=== PATIENT | female | born 2000 | race Caucasian/White ===

== ENCOUNTER 2020-06-11 10:42 | Emergency (ER) | payer OTHER, SELFPAY ==
--- NOTE | ~2020-06-11 | CT_ITS ---
EXAMINATION: CT abdomen pelvis wo con EXAM DATE: 06/11/2020 13:00 INDICATION: Persistent worsening left flank pain. TECHNIQUE: Spiral CT of the abdomen and pelvis was performed without contrast. Axial, coronal and sag ittal images were reviewed. The dose-length product (DLP) for this examination was 750.52 mGy-cm. T he exposure was tailored according to patient size (auto mA exposure control), and iterative reconstr uction (ASIR) was used as additional dose reduction technique. Comparison is made to prior examinatio n from 03/27/2019. FINDINGS: There is no nephrolithiasis or hydronephrosis. The uterus and ovaries are unremarkable, n o adnexal mass. The bladder is unremarkable. The liver, spleen, adrenal glands and pancreas are unr emarkable. Gallbladder is unremarkable. No biliary obstruction. There is no retroperitoneal or pel bubba lymphadenopathy. No abdominal wall hernias. The appendix is normal. The stomach and small bowel are unremarkable. There is expected amount of c olonic stool. No free intraperitoneal gas. The heart is normal in size. There are no pericardial or pleural effusions. The lung bases are unremarkable. The bones are unremarkable. IMPRESSION: 1. No nephrolithiasis, hydronephrosis or acute intra-abdominal findings. Reviewed, dictated and finalized at location A. 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
[2020-06-11 11:25] VITALS: BP 149/84; PULSE 84; RESP 18; TEMP 37.1; O2SAT 100
[2020-06-11 12:01] LABS: Add Urine Microscopic? YES; Appearance Urine Clear (Clear); Bilirubin Urine Negative (Negative); Blood Urine Negative (Negative); Color Urine Yellow (Yellow); Glucose Urine UA Negative (Negative); Ketones Urine Negative (Negative); Leukocyte Esterase Ur Negative LEU/UL (Negative); Mucus Urine Rare /lpf; Nitrate Urine Negative (Negative); Protein Urine Negative (Negative); RBC Urine 0-2 /hpf (0-2); Specific Grav Ur 1.024 (1.001-1.035); Squamous Epithelial Cell Urine Rare /hpf (Few); Urobilinogen Urine Negative mg/dL (<2.0); WBC Urine 0-3 /hpf
[2020-06-11] MEDS: KETOROLAC (*BKC) 60 MG/2 ML VIAL 30 MG IM (13:10)
--- NOTE | 2020-06-11 13:46 | ED.GENADULT ---
HPI - General Adult General Chief complaint: Urogenital-Female Stated complaint: left flank pain Time Seen by Provider: 06/11/20 12:02 Source: patient Mode of arrival: ambulatory Limitations: no limitations History of Present Illness HPI narrative: Patient presents with chief complaint of left-sided back pain that has been going on for a few months. Patient states she thinks she notices more frequent urination but denies noticing any pain with urination or blood in her urine. Patient denies history of kidney stones. She states that the pain has increased so she came to emergency department today after trying to make an appointment with her primary care but not being able to be seen today. Patient denies fever, chills, nausea, vomiting, diarrhea, chest pain, shortness of breath. She states she has been taking cyclobenzaprine and Advil without removal of the pain. Related Data Home Medications Medication Instructions Recorded Confirmed cyclobenzaprine mg 06/11/20 etonogestrel-ethinyl estradiol vag ring VAGINAL 06/11/20 [NuvaRing] vortioxetine [Trintellix] mg 06/11/20 Allergies Allergy/AdvReac Type Severity Reaction Status Date / Time gluten AdvReac Unknown Other Verified 06/11/20 11:34 Review of Systems Review of Systems: Narrative: CONSTITUTIONAL: Denies fever, chills, or sweats. EYES: Denies visual changes, redness, or discharge. ENT: Denies rhinorrhea, congestion, sore throat, or otalgia. CARDIOVASCULAR: Denies chest pain, palpitations, or edema. RESPIRATORY: Denies cough or dyspnea. GASTROINTESTINAL: Denies abdominal pain, nausea, vomiting, or diarrhea. GENITOURINARY: Reports urinary frequency and left flank pain denies dysuria or hematuria. SKIN: Denies rash or itching. MUSCULOSKELETAL: Denies back pain, joint pain, or myalgia. NEUROLOGIC: Denies headache, numbness, dizziness, or weakness. PSYCHIATRIC: Denies anxiety or depression. Exam Narrative: Exam Narrative: GENERAL: Well-appearing, well-nourished, and in no acute distress. Nontoxic in appearance. HEAD: Normocephalic, atraumatic. EYES: PERRLA and EOMI. NECK: Supple. No adenopathy or masses. CHEST: Clear to auscultation. No respiratory distress. No wheezes rales or rhonchi HEART: Regular rate and rhythm. No murmur heard. Normal peripheral pulses. ABDOMEN: Soft, nontender, nondistended, normal active bowel sounds. Left-sided flank tenderness with percussion. EXTREMITIES: Normal range of motion. No edema. Patient able to move without deficit or difficulty. SKIN: Warm, dry, no rash. NEURO: No focal deficits. Alert and oriented x3. PSYCH: Normal mood and affect. Course Vital Signs Vital signs: Vital Signs Temperature 98.8 F 06/11/20 11:25 Pulse Rate 84 06/11/20 11:25 Respiratory Rate 18 06/11/20 11:25 Blood Pressure 149/84 H 06/11/20 11:25 Pulse Oximetry 100 06/11/20 11:25 Temperature 98.8 F 06/11/20 11:25 Pulse Rate 84 06/11/20 11:25 Respiratory Rate 18 06/11/20 11:25 Blood Pressure 149/84 H 06/11/20 11:25 Pulse Oximetry 100 06/11/20 11:25 Medical Decision Making MDM Narrative Medical decision making narrative: Patient's urine was negative patient patient states that left leg pain has been persistent so CT was ordered to rule out kidney stone. CT was negative for any acute findings. Patient will be prescribed naproxen and encouraged to continue her cyclobenzaprine and follow-up with her primary care for further investigation as her symptoms. Vital Signs Vital Signs: Vital Signs Temperature 98.8 F 06/11/20 11:25 Pulse Rate 84 06/11/20 11:25 Respiratory Rate 18 06/11/20 11:25 Blood Pressure 149/84 H 06/11/20 11:25 Pulse Oximetry 100 06/11/20 11:25 Temperature 98.8 F 06/11/20 11:25 Pulse Rate 84 06/11/20 11:25 Respiratory Rate 18 06/11/20 11:25 Blood Pressure 149/84 H 06/11/20 11:25 Pulse Oximetry 100 06/11/20 11:25 Lab Data Labs: Lab Results 06/11/20 Range/U
[2020-06-11 13:59] VITALS: RESP 16
== END 2020-06-11 13:57 | disposition home or self-care (01) ==
PROVIDERS: Emergency Provider Emergency Medicine; PCP Nurse Practitioner Adult Health
DX: R10.9 Unspecified abdominal pain (principal)
CPT/HCPCS: 74176; 81001; 81025; 96372; 99284; J1885

== ENCOUNTER 2021-03-21 00:56 | Day surgery (SDC) | payer OTHER, SELFPAY ==
[2021-03-17 12:27] VITALS: BMI 27.8
[2021-03-21 09:28] VITALS: BP 139/88; PULSE 70; RESP 16; TEMP 35.5; O2SAT 100; BMI 28.3
[2021-03-21] MEDS: LACTATED RINGERS 1,000 ML 150 ML IV CONT (09:40)
--- NOTE | 2021-03-21 09:49 | WPDANESEPPF ---
Anes - Initial Pre Proc Eval Procedure: Operation Date: 03/21/21 10:00 Proposed Procedures p Esophagogastroduodenoscopy - Rocco Vázquez MD Date/Time: 03/21/21 09:49 Surgeon: Rocco Vázquez MD Pre Op Diagnosis: bloating, epigastric pain, diarrhea Patient Data Age: 20 Gender: F Height: 1.78 m Weight: 89.5 kg Last Vital Signs Temp 96 F L 03/21/21 09:28 Pulse 70 03/21/21 09:28 Resp 16 03/21/21 09:28 BP 139/88 03/21/21 09:28 Pulse Ox 100 03/21/21 09:28 Allergies Allergy/AdvReac Type Severity Reaction Status Date / Time gluten AdvReac Unknown Other Verified 03/21/21 09:23 Home Medications Medication Instructions Recorded Confirmed Type etonogestrel-ethinyl estradiol 1 vag ring VAGINAL MO 06/11/20 03/17/21 History [NuvaRing] alprazolam 0.5 mg PO DAILY PRN 03/17/21 03/17/21 History diphenhydramine-acetaminophen 2 tablet PO HS PRN 03/17/21 03/17/21 History [Tylenol PM Extra Strength] eluxadoline [Viberzi] 75 mg PO BID 03/17/21 03/17/21 History fluticasone propionate 1 spray INTRANASAL DAILY 03/17/21 03/17/21 History Patient hx anesthesia problems: none Family hx anesthesia problems: none [facility] Past Medical History Medical History (Updated 01/23/21 @ 16:14 by Rocco Vázquez MD) Irritable bowel syndrome with diarrhea Wheat allergy Social History Social History (Updated 01/23/21 @ 15:10 by Suzie Baez CMA) Smoking status: Never smoker Alcohol intake: current Substance use: never Substance use type: does not use Living arrangements: with family Spiritual care concerns: No Anes - Eval Final PreProcedure Day of Procedure 03/21/21 09:49 Patient weight: overweight Heart: regular rate and rhythm Lungs: clear to auscultation Airway: Mallampati scale class II Neurological: alert and oriented Last oral intake: >/= 8 hours ASA classification: II Emergent: no Anesthetic plan: proceed Anesthesia type and monitoring: general GIVS and standard monitoring Informed Consent: The patient's anesthetic plan and its attendant risks and benefits were discussed with the patient/family/POA. Questions were solicited and answers provided to the satisfaction of the patient/family/POA.
--- NOTE | 2021-03-21 09:51 | PM.HPGS ---
History of Present Illness History of Present Illness Consent: Risks, benefits, and alternatives have been discussed and questions answered. Patient agrees to proceed with procedure. Chief complaint: bloating, epigastric pain, diarrhea Narrative: Carmina Harrington is a 20 year old female with epigastric pain mostly after eating wheat that she is avoiding, also loose stools for which tried viberzi but made her constipated, only using if she really needs it Review of Systems Constitutional: Constitutional: Denies headache(s) and Denies weakness Eyes: Eyes: Denies blurry vision ENT: Reports Normal hearing present, Denies headache(s) and Denies neck pain Cardiovascular: Cardiovascular: Denies chest pain and Denies dyspnea Respiratory: Respiratory: Denies dyspnea Gastrointestinal: Gastrointestinal: Reports no additional gastrointestinal complaints Genitourinary: Genitourinary: Denies dysuria Musculoskeletal: Musculoskeletal: Denies neck pain Integumentary/Breasts: Skin/Breast: Denies dry skin Neurologic: Reports Normal hearing present, Denies headache(s) and Denies weakness Psychiatric: Psychiatric: Denies anxiety Endocrine: Endocrine: Denies change in body appearance Hematologic/Lymphatic: Hematologic/Lymphatic: Denies easy bleeding Allergic/Immunologic: Allergic/Immunologic: Denies urticaria PMFSH Past Medical History Medical History (Updated 03/21/21 @ 09:53 by Rocco Vázquez MD) Epigastric pain Irritable bowel syndrome with diarrhea Wheat allergy Social History Social History (Updated 01/23/21 @ 15:10 by Suzie Baez CMA) Smoking status: Never smoker Alcohol intake: current Substance use: never Substance use type: does not use Living arrangements: with family Spiritual care concerns: No Meds Home Medications and Allergies Home Medications Medication Instructions Recorded Confirmed Type etonogestrel-ethinyl estradiol 1 vag ring VAGINAL MO 06/11/20 03/17/21 History [NuvaRing] alprazolam 0.5 mg PO DAILY PRN 03/17/21 03/17/21 History diphenhydramine-acetaminophen 2 tablet PO HS PRN 03/17/21 03/17/21 History [Tylenol PM Extra Strength] eluxadoline [Viberzi] 75 mg PO BID 03/17/21 03/17/21 History fluticasone propionate 1 spray INTRANASAL DAILY 03/17/21 03/17/21 History Allergies Allergy/AdvReac Type Severity Reaction Status Date / Time gluten AdvReac Unknown Other Verified 03/21/21 09:23 Vital Signs Vital Signs - 24 hr 03/21/21 09:28 Temperature 96 F L Pulse Rate 70 Respiratory Rate 16 Blood Pressure 139/88 Pulse Oximetry 100 Exam Const: General: comfortable and no acute distress HENMT: General nose exam: Normal nares present Eyes: General: appearance normal, both eyes and all related structures Neck: Neck: no JVD Resp: Auscultation: clear to auscultation bilaterally Cardio: Rate: regular rate Rhythm: regular rhythm GI: Inspection: non-distended GI Palp: Yes Soft to palpation Skin: General skin exam: normal color Neuro: General: gait normal Speech: normal speech Extrem: General: normal to inspection Psych: Mental Status: mental status grossly normal Assessment and Plan Assessment and plan (1) Irritable bowel syndrome with diarrhea: Code(s): K58.0 - Irritable bowel syndrome with diarrhea Status: Acute Assessment and Plan: egd with bx (2) Epigastric pain: Code(s): R10.13 - Epigastric pain Status: Acute
[2021-03-21 10:10] VITALS: BP 102/62; PULSE 83; RESP 17; O2SAT 100
[2021-03-21 10:20] VITALS: BP 114/79; PULSE 69; RESP 21; O2SAT 100
[2021-03-21 10:30] VITALS: BP 130/80; PULSE 78; O2SAT 100
== END 2021-03-21 10:42 | disposition home or self-care (01) ==
PROVIDERS: PCP Nurse Practitioner Adult Health; Visit Provider Internal Medicine Gastroenterology
PROC: 0DJ08ZZ Inspection of Upper Intestinal Tract, Via Natural or Artificial Opening Endoscopic (ICD-10-PCS; CPT 43235; principal; 2021-03-21 10:00)
DX: R11.0 Nausea (principal); R10.13 Epigastric pain; K58.0 Irritable bowel syndrome with diarrhea; K29.50 Unspecified chronic gastritis without bleeding; R19.7 Diarrhea, unspecified; R14.0 Abdominal distension (gaseous)
CPT/HCPCS: 43239; 88305; J2001; J2704; J7120

== ENCOUNTER → 2021-12-26 08:44 | Outpatient (CLI) | payer OTHER, SELFPAY ==
--- NOTE | ~2021-12-26 | US_ITS ---
US breast LT complete DATE: 12/26/2021 09:07 INDICATION: Lateral left breast and left axillary lumps for one to 2 months TECHNIQUE: Real-time imaging of complete left breast and left axilla COMPARISON: None FINDINGS: No suspicious mass, cyst or suspicious shadowing is detected in the left breast or left axi lla. IMPRESSION: BI-RADS Category 1: Negative Reviewed, dictated and finalized at Location [facility]. Reviewed, dictated and finalized at location A.
== END ==
PROVIDERS: PCP Nurse Practitioner Adult Health; Visit Provider Nurse Practitioner Obstetrics & Gynecology
DX: N64.4 Mastodynia (principal); N63.20 Unspecified lump in the left breast, unspecified quadrant; Z80.3 Family history of malignant neoplasm of breast
CPT/HCPCS: 76641

== ENCOUNTER 2023-02-18 15:43 | Outpatient (CLI) | payer OTHER, SELFPAY ==
--- NOTE | 2023-02-18 | ECHO_ITS ---
Patient Info Name: Carmina Harrington Age: 22 years : 2000 Gender: Female Ht: 70 in Wt: 205 lbs BSA: 2.17 m2 HR: 97 bpm BP: 135 / 91 mmHg Heart Rhythm: Sinus Arrhythmia Technical Quality: Good Exam Date: 02/18/2023 4:06 PM Exam Location: [facility] Pulmonary Patient Status: Outpatient Admit Date: 02/18/2023 Staff Ordering Physician: DiliaJackelyn Public Health Social Worker: Jono Cabello RDCS Attending Provider: UlicesJackelyn Referring Physician: Dilia LORENZ; Exam Type: CA echo doppler and color flow Study Info Indications - murmur Complete two-dimensional, color flow and Doppler transthoracic echocardiogram is performed. Summary 1. Complete two-dimensional, color flow and Doppler transthoracic echocardiogram is performed. 2. Unremarkable 2D/Doppler echocardiogram. Left Ventricle Left ventricular chamber dimension is normal. Left ventricular systolic function is normal, estimated at 65-70%. The left ventricular diastolic function is normal. Right Ventricle Right ventricular chamber dimension is normal. Left Atria Left atrial chamber dimension is normal. Right Atria Right atrial chamber dimension is normal. Aortic Valve The aortic valve is normal. Pulmonic Valve The pulmonic valve is normal. Mitral Valve The mitral valve has normal leaflets. Tricuspid Valve The tricuspid valve leaflets are normal. Pericardium/Pleural The pericardium appears normal. Aorta The aortic root size at the sinus of Valsalva is normal. Left Ventricular Outflow Tract Name Value Normal LVOT 2D LVOT Diameter 2.0 cm LVOT Doppler LVOT Peak Gradient 6 mmHg LVOT Mean Gradient 3 mmHg LVOT VTI 23 cm LVOT VTI/AV VTI Ratio 1.0 LVOT Stroke Volume 70 ml LVOT CO 5.9 l/min LVOT CI 2.7 l/min/m2 Pulmonic Valve Name Value Normal RVOT Doppler RVOT Peak Gradient 4 mmHg PV Doppler PV Peak Gradient 3 mmHg Mitral Valve Name Value Normal MV Doppler MV Decel [place] 414 cm/s2 MV PHT 62 ms MV Area (PHT) 3.5 cm2 4.0-5.0 MV Diastolic Function MV E Peak Velocity 89 cm/s
== END 2023-02-18 15:44 | disposition home or self-care (01) ==
PROVIDERS: PCP Nurse Practitioner Family; Visit Provider Nurse Practitioner Family
DX: R01.1 Cardiac murmur, unspecified (principal)
CPT/HCPCS: 93306

== ENCOUNTER 2023-07-08 07:54 | Outpatient (CLI) | payer OTHER, SELFPAY ==
--- NOTE | ~2023-07-08 | NM_ITS ---
EXAM: NM gastric emptying study DATE: 07/08/2023 12:35 INDICATION: Nausea with vomiting. TECHNIQUE: A gastric emptying study was performed using the methodology of Jagdish DAVID, et al. J Nucl Med 2007; 48:568-572. The patient was given a meal consisting of 2 scrambled eggs labeled with 1.0 m Ci Tc-99m sulfur colloid, 2 slices of toast, two packages of jam, and approximately 120 mL of water. Simultaneous anterior and posterior 1-min images of the abdomen were obtained with the patient supine at multiple time points over a total period of 4 hours. The geometric mean of anterior and posterior views was determined, and the percentage retention was calculated for each time point. COMPARISON: CT abdomen and pelvis 06/11/2020 FINDINGS: Gastric retention of the radiotracer-labeled meal was 44%, 18%, and 1% at the 1-hour, 2-ho ur, and 4-hour time points, respectively. With this technique, apparent rapid gastric emptying is sug gested by <30% gastric retention at 1 hour. Delayed gastric emptying is defined by gastric retention of >90% at 1 hour, >60% retention at 2 hours, or >10% retention at 4 hours. IMPRESSION: 1. Normal gastric emptying. Reviewed, dictated and finalized at location A. 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 Normal gastric emptying.
== END 2023-07-08 07:55 | disposition home or self-care (01) ==
PROVIDERS: PCP Nurse Practitioner Family; Visit Provider Internal Medicine Gastroenterology
DX: R11.2 Nausea with vomiting, unspecified (principal)
CPT/HCPCS: 78264; A9541

== ENCOUNTER 2023-08-19 09:32 | Outpatient (CLI) | payer OTHER, SELFPAY ==
[2023-08-19 19:07] LABS: Basophils Percent Auto 0.4 % (0.2-1.2); Eosinophils Absolute Auto 0.1 K/mm3 (0-0.3); Eosinophils Percent Auto 1.9 % (0-4.4); Hematocrit 37.6 % (37.0-47.0); Hemoglobin 12.5 g/dL (12.0-15.0); Immature Granulocyte Absolute 0.01 K/mm3 (0.00-0.031); Immature Granulocyte Percent A 0.1 % (0-0.5); Lymphocytes Absolute Auto 3.58 K/mm3 (0.9-3.2); Lymphocytes Percent Auto 53.6 % (18.3-44.2); Mean Corpuscular HGB Conc 33.2 g/dl (32-36); Mean Corpuscular Hemoglobin 30.3 pg (26-34); Mean Corpuscular Volume 91.3 fl (80-100); Mean Platelet Volume 8.9 fl (7.4-10.4); Monocytes Absolute Auto 0.5 K/mm3 (0.1-0.6); Monocytes Percent Auto 6.9 % (2.6-8.5); Neutrophils Absolute Auto 2.5 K/mm3 (1.3-6.7); Neutrophils Percent Auto 37.1 % (45.5-73.1); Platelet Count Result 310 k/mm3 (150-375); Red Blood Count 4.12 M/mm3 (4.2-5.4); Red Cell Distribution Width 11.1 % (11.5-14.5); White Blood Count 6.7 K/mm3 (4.5-10.0)
[2023-08-19 19:26] LABS: Appearance Urine Cloudy (Clear); Bacteria Urine Rare /hpf; Bilirubin Urine Negative (Negative); Blood Urine 2+ (Negative); Color Urine Yellow (Yellow); Glucose Urine UA Negative (Negative); Ketones Urine Negative (Negative); Leukocyte Esterase Ur 2+ LEU/UL (NEGATIVE); Nitrate Urine Negative (Negative); Non Pathogenic Casts 0-2; Protein Urine Negative (Negative); RBC Urine 0-2 /hpf (0-2); Specific Grav Ur 1.018 (1.001-1.035); Squamous Epithelial Cell Urine Few /hpf (Few); Urobilinogen Urine 0.2 mg/dL (<2.0); WBC Urine 21-50 /hpf (0-3); pH Urine 5.5 (5.0-9.0)
[2023-08-19 19:32] LABS: Add Urine Microscopic? YES
[2023-08-19 20:50] LABS: Alanine Aminotransferase 38 U/L (6-35); Albumin Level 4.4 g/dL (3.5-5.1); Alkaline Phosphatase 73 U/L (38-126); Anion Gap 9 mmol/L (8-16); Aspartate Amino Transferase 56 U/L (14-36); Bilirubin,Total 0.4 mg/dL (0.2-1.3); Blood Urea Nitrogen 12 mg/dL (7-17); Calcium 9.3 mg/dL (8.4-10.2); Carbon Dioxide 24 mmol/L (22-30); Chloride 106 mmol/L (98-107); Cholesterol 270 mg/dL (0-200); Estimated Glomerular Filt Rate > 60; Glucose 83 mg/dL (65-110); LDL Cholesterol Direct 74 mg/dL; Magnesium 2.1 mg/dL (1.6-2.3); Sodium 139 mmol/L (137-145)
[2023-08-19 20:51] LABS: Triglycerides 1066 mg/dL (<150)
== END 2023-08-19 09:33 | disposition home or self-care (01) ==
LOC: ANHBWCIMG 09:33 → ANHBWCLAB 09:35
PROVIDERS: PCP Nurse Practitioner Adult Health; Visit Provider Nurse Practitioner Adult Health
DX: N39.0 Urinary tract infection, site not specified (principal); I10 Essential (primary) hypertension
CPT/HCPCS: 36415; 80053; 80061; 81001; 83735; 84443; 85025

== ENCOUNTER 2023-08-31 08:09 | Outpatient (CLI) | payer OTHER, SELFPAY ==
[2023-08-31 20:26] LABS: Appearance Urine Turbid (Clear); Bacteria Urine None Seen /hpf; Bilirubin Urine Negative (Negative); Blood Urine Negative (Negative); Color Urine Yellow (Yellow); Glucose Urine UA Negative (Negative); Ketones Urine Negative (Negative); Leukocyte Esterase Ur Negative LEU/UL (NEGATIVE); Mucus Urine Present /lpf; Need Manual Microscopic Reviewed; Nitrate Urine Negative (Negative); Protein Urine Negative (Negative); RBC Urine 0-2 /hpf (0-2); Specific Grav Ur 1.027 (1.001-1.035); Squamous Epithelial Cell Urine None seen /hpf (Few); Urobilinogen Urine 0.2 mg/dL (<2.0); WBC Urine 0-5 /hpf (0-3); pH Urine 5.5 (5.0-9.0)
[2023-08-31 20:27] LABS: Add Urine Microscopic? YES
== END 2023-08-31 08:10 | disposition home or self-care (01) ==
LOC: ANHBWCLAB 08:10
PROVIDERS: PCP Nurse Practitioner Adult Health; Visit Provider Nurse Practitioner Adult Health
DX: R39.9 Unspecified symptoms and signs involving the genitourinary system (principal)
CPT/HCPCS: 81001

== ENCOUNTER 2024-02-17 08:45 | Outpatient (CLI) | payer OTHER, SELFPAY ==
[2024-02-17 19:32] LABS: Alanine Aminotransferase 30 U/L (6-35); Albumin Level 4.8 g/dL (3.5-5.1); Alkaline Phosphatase 54 U/L (38-126); Anion Gap 14 mmol/L (4-12); Aspartate Amino Transferase 91 U/L (14-36); Bilirubin,Total 0.3 mg/dL (0.2-1.3); Blood Urea Nitrogen 8 mg/dL (7-17); Calcium 9.5 mg/dL (8.4-10.2); Carbon Dioxide 26 mmol/L (22-30); Chloride 102 mmol/L (98-107); Cholesterol 153 mg/dL (0-200); Estimated Glomerular Filt Rate > 60; Glucose 86 mg/dL (65-110); HDL Direct 41 mg/dL; Potassium 3.9 mmol/L (3.4-5.0); Sodium 142 mmol/L (137-145); Triglycerides 192 mg/dL (<150)
[2024-02-17 19:43] LABS: LDL Cholesterol Direct 72 mg/dL
[2024-02-17 19:44] LABS: Basophils Percent Auto 0.7 % (0.2-1.2); Eosinophils Absolute Auto 0.2 K/mm3 (0-0.3); Eosinophils Percent Auto 3.3 % (0-4.4); Hematocrit 39.8 % (37.0-47.0); Hemoglobin 12.5 g/dL (12.0-15.0); Immature Granulocyte Absolute 0.01 K/mm3 (0.00-0.031); Immature Granulocyte Percent A 0.2 % (0-0.5); Lymphocytes Absolute Auto 2.23 K/mm3 (0.9-3.2); Mean Corpuscular HGB Conc 31.4 g/dl (32-36); Mean Corpuscular Hemoglobin 29.6 pg (26-34); Mean Corpuscular Volume 94.3 fl (80-100); Mean Platelet Volume 9.7 fl (7.4-10.4); Monocytes Absolute Auto 0.5 K/mm3 (0.1-0.6); Monocytes Percent Auto 8.6 % (2.6-8.5); Neutrophils Absolute Auto 2.8 K/mm3 (1.3-6.7); Neutrophils Percent Auto 48.2 % (45.5-73.1); Platelet Count Result 331 k/mm3 (150-375); Red Blood Count 4.22 M/mm3 (4.2-5.4); Red Cell Distribution Width 11.6 % (11.5-14.5); White Blood Count 5.7 K/mm3 (4.5-10.0)
[2024-02-17 19:58] LABS: Thyroid Stimulating Hormone Reflex 0.379 uIU/mL (0.465-4.68)
[2024-02-17 20:50] LABS: Free T4 Free Thyroxine Reflex 1.32 ng/dL (0.78-2.19)
[2024-02-17 21:34] LABS: Total Triiodothyronine (T3) 1.66 NG/ML (0.97-1.69)
== END 2024-02-17 08:46 | disposition home or self-care (01) ==
LOC: ANHBWCLAB 08:47
PROVIDERS: PCP Nurse Practitioner Adult Health; Visit Provider Nurse Practitioner Adult Health
DX: E78.5 Hyperlipidemia, unspecified (principal); E78.1 Pure hyperglyceridemia; R74.8 Abnormal levels of other serum enzymes
CPT/HCPCS: 36415; 80048; 80061; 80076; 84439; 84443; 84480; 85025

== ENCOUNTER 2025-01-10 13:51 | Outpatient (CLI) | payer OTHER, SELFPAY ==
--- NOTE | ~2025-01-10 | US_ITS ---
US breast RT complete INDICATION: Nipple discharge for one year TECHNIQUE: Dedicated complete right breast ultrasound including all 4 quadrants in the periareolar lo cation COMPARISON: No prior studies for comparison. FINDINGS: There is heterogeneous echotexture throughout the right breast. At 9:00, 1 cm from the nipp le there is a cluster of cysts, largest measuring 7 mm. No suspicious masses to suggest malignancy. IMPRESSION: 1: No sonographic evidence for malignancy in the right breast. BI-RADS CATEGORY 2 - BENIGN FINDINGS Reviewed, dictated and finalized at location A.
--- OUTSIDE RECORDS SUMMARY | 2025-01-10 15:38 | XMS_ITS | Data Portability ---
Author Organization [place] [facility] [employer], Main Office Address [address] [place] [address] Assessment Encounter Date Assessment Date Assessment LastModified by Organization Details LastModified Time 01/20/2023 01/20/2023 I have reconciled the patient's medications post their discharge from inpatient facility. Not available 01/20/2023 08:28:28 Plan of Treatment Reminders Order Date Submit Date Provider Last Modified By Organization Details Last Modified Time Details Appointments None recorded. Lab TSH, serum or plasma [address] (Lab), [address] [place], [address], 3 08:18:26 lipid panel, serum [address] (Lab), [address] [place], [address], 3 08:18:26 lipid panel, serum [address] (Lab), [address] [place], [address], 3 08:03:55 drug screen, urine 2022 023 [facility] (Lab), [address] [place], [address], 3 14:24:11 Referral gastroenter ologist referral - Ongoing nausea. Better in morning and worse throughout the day. Constipatio n.Dry heaving most evenings. 1-2 times weekly will have regurg in mouth. Last EGD estimated as 2020.On zofran PRN and omeprazole. 2022 023 [email or web address] 3 Rococ saucedo MD, [address], [address], [place], [address], 09:17:21 nutritionis t/dietitian referral 2022 [email or web address], [address], [address], [place], [address], 09:17:24 cardiologis t referral - Active and having chest pain playing volleyball. HTN, Hyperlipide angie, Ner murmur on exam 01/20/23. Mother has htnt [email or web address] [place] [address] Heart And Vascular Referral Fax Line, [address], [address], [place], [address], 3 19:50:59 Procedures None recorded. Surgeries None recorded. Imaging US, echocardiog tessa - new onset htn, chest pain, and murmur. [email or web address] [place] [address] (Cardiology & Emg), [address], [place], [address], 3 08:59:01 Medication Orders lisinopril 10 mg tablet 2022 023 [facility], [address] [place], [address], 3 08:33:44 cyclobenzap rine 5 mg tablet 2022 023 [email or web address] [facility], [address] [facility] [place] [facility], [place], [address], 3 13:08:39 Vyvanse 30 mg capsule 2022 023 [email or web address] [facility], [address] [facility] [place] [facility], [place], [address], 08:49:38 Patient TargetsNo targets recorded. Patient Instructions Encounter Date Encounter Id Patient Instructions Last Modified By Organization Details Last Modified Time 12/01/2022 [id number] FU in 3 mo for adhd, lipid, obese. Not available 12/01/2022 13:18:39 01/20/2023 [id number] Thank you for your visit to our office today. We would like to request that you reach out to your referring or previous provider and request that they send us a Summary of Care in electronic form, so that we may have it on file in your medical record. At your visit, we had the medical records we needed to provide you with the best possible care; however, for insurance purposes, an electronic Summary of Care is beneficial. Thank you for your assistance in obtaining this information and we look forward to providing continued care to you. Please review your medication list from the Summary of Care for this visit. If there are any differences from what you are currently taking at home, please call us to discuss. Not available 01/20/2023 08:28:28 Homebound Status : Required Home Health Services: Durable Medical Equipment needed: Billing Guidelines CPT code 01076- Transitional Care Management services with moderate medical decision complexity (qnyd-hw-jauo visit within 14 days of discharge). CPT code 93435- Transitional Care Management services with high medical decision complexity (ejtl-gz-[id number] visit within 7 days of discharge). Not available 01/20/2023 08:28:28 02/17/2023 [id number] 3 mo fu adhd (no stimulant), lipid, overweight, heart murmur (seeing cardiology 02/2023), migraine. Not available 02/17/2023 09:05:40 03/30/2023 [id number] FU prn. 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 HTN, Hyperlipidemia, Ner murmur on exam 01/20/23. Mother has htnt Referring Physician: Jackelyn Dobbs, Family Medicine, Encounter Date: 01/20/2023 Chemical Compounder Helper Referral for Nausea Ongoing nausea. Better in morning and worse throughout the day. Constipation.Dry heaving most evenings. 1-2 times weekly will have regurg in mouth. Last EGD estimated as 2020.On zofran PRN and omeprazole. Referring Physician: Jackelyn Dobbs [facility] Medicine, Encounter Date: 03/30/2023 Ballistician/dietitian Refer ral for Nausea Referring Physician: Jackelyn Dobbs [facility], Encounter Date: 03/30/2023 Results Created Date Observation Date Name Description Value Unit Range Abnormal Flag Note LastModifiedBy Organization Detail LastModifiedTime 01/21/2001/08/2023 CT, angio gram, chest , w/ contr ast No observ ation record ed. BARCODE Not Available 2022 08:48:17 01/21/20 23 01/08/2023 CT, head, w/ contr ast No observ ation record ed. BARCODE Not Available 2022 08:48:17 02/20/20 23 02/18/2023 US, echoc ardio gram No observ ation record ed. [address], [place], [address], 02/19/2023 16:33:28 02/25/20 23 02/18/2023 US, echoc ardio gram No observ ation record ed. [address], [place], [address], 02/25/2023 17:57:54 03/16/20 23 03/16/2023 cardi ac stres s test No observ ation record ed. [email or web address] [facility] [address], [place], [address], 03/17/2023 08:24:40 04/15/20 23 04/15/2023 US, renal No observ ation record ed. [email or web address] [facility] [address], [place], [address], 04/20/2023 18:12:22 07/08/20 23 07/08/2023 gastr ic empty ing study (PROC ) No observ ation record ed. [email or web address] [facility] [address], [place], [address], 07/08/2023 17:36:33 Result Notes None recorded. Problems Name Problem SNOMED Code Status Onset Date Resolution Date Notes Provider Name and Address Organization Details Recorded Time C-reactiv e protein above reference range 34180859829 9104 Active 2021 Not Available [facility] 3 20:02:56 Insomnia 542385839 Active 2020 Not Available [facility] 3 20:02:56 Irritable bowel syndrome with diarrhea 958447700 Active 2017 Not Available [facility] 3 20:02:56 Mixed anxiety and depressiv e disorder 993590134 Active 2018 Not Available [facility] 3 20:02:57 Vitamin D deficienc y 25050013 Active 2018 Not Available [facility] 3 20:02:57 Attention deficit hyperacti vity disorder, predomina ntly inattenti ve type 37426909 Active 2021 Not Available [facility] 3 20:02:57 Disorder of vitamin D 326339116 Completed 201711/08/2018 Not Available [facility] 3 20:02:57 Gluten sensitivi ty 035552504 Active 2017 Not Available [facility] 3 20:02:57 Serum vitamin B12 borderlin e low 135459144 Active 2017 Not Available [facility] 3 20:02:57 Posttraum atic stress disorder 59695387 Active 2018 Not Available [facility] 3 20:02:57 Anxiety 53098366 Active 2021 Not Available [facility] 3 20:02:57 Hyperlipi demia 54604730 Active 2021 Not Available [facility] 3 20:02:58 Unable to concentra te 59382652 Active 2021 Not Available [facility] 3 20:02:58 COVID-19 787204308 Active 2021 Not Available [facility] 3 20:02:58 Ankylosin g spondylit is 3341985 Active 2021 Not Available [facility] 3 20:02:58 Strain of back muscle 957442693 Active 2022 Jackelyn Dobbs NP [address], [address], [place], [address] , [employer] [facility] [employer] [facility] 3 13:07:28 Overweigh t 265495514 Active 2022 Jackelyn Dobbs NP [address], [address], [place], [address] , [employer]@ [employer] [facility] 3 13:09:26 Essential hypertens ion 55414653 Active 2022 Jackelyn Dobbs NP [address], [address], [place], [address] , [employer] [facility] 3 08:47:13 Heart murmur 45342370 Active 2022 Jackelyn Dobbs NP [address], [address], [place], [address] , [employer] [facility] 3 08:52:38 Chest pain 72157668 Active 2022 Jackelyn Dobbs NP [address], [address], [place], [address] , [employer] [facility] [employer] [facility] 3 08:54:43 Hypertrig lyceridem ia 864082377 Active 2022 Jackelyn Dobbs NP [address], [address], [place], [address] , [employer] [facility] 3 08:11:41 Nausea 527635825 Active 2022 Jackelyn Dobbs NP [address], [address], [place], [address] , [place] [facility] 3 08:51:31 Constipat ion 65181791 Active 2022 Jackelyn Dobbs NP [address] [facility] [address], [place], [address] , [facility] [employer] [facility] 3 08:56:36 Problem Notes None recorded. Procedures Surgical History Date Name Laterality Status Provider Name and Address Organization Details Recorded Time 01/21/20 Transitional_Ca re_Management completed Jackelyn Carver RN [facility] [employer] [facility] 01/20/2023 08:28:28 Colonoscopy completed Not Available [facility] 09/23/2022 20:02:05 Imaging Results None recorded. Procedure Notes None recorded. Medical Equipment None Reported. Allergies Allergen ID Allergen Name Allergen Category Reaction Reaction Severity Criticality Documentation Date Start Date Code Code System Note Provider Name and Address Organization Details Recorded Time 28327 wheat gluten extract food Not available Not available Not available 09/23/2022 96408 81 RxNorm Not Available [facility] 3 20:04:14 Medications Name Sig Start Date Stop Date Status Note LastModified by Organization Details LastModified Time quetiapin e 25 mg tablet TAKE 1 TABLET BY MOUTH ONCE DAILY AT BEDTIME active Not Available Not Available No t Available amoxicill in 500 mg capsule 02/15 completed Not Available Not Available Not Available buspirone 5 mg tablet TAKE 1 TABLET BY MOUTH TWICE DAILY WITH MEALS active Not Available Not Available No t Available atorvasta tin 20 mg tablet Take 1 tablet every day by oral route at bedtime for 30 days. active Not Available Not Available No t Available azithromy ebony 250 mg tablet TAKE 2 TABLETS BY MOUTH ON DAY 1 AND THEN TAKE 1 TABLET BY MOUTH ONCE A DAY ON DAY 2 THROUGH DAY 5 05/27 completed Not Available Not Available Not Available nystatin 100,000 unit/gram topical ointment 01/27 completed Not Available Not Available Not Available fluconazo le 150 mg tablet 05/27 completed Not Available Not Available Not Available hydrocodo ne 5 mg-acetam inophen 325 mg tablet TAKE 1 TO 2 TABLETS BY MOUTH EVERY 6 HOURS NEEDED FOR PAIN 01/27 completed Not Available Not Available Not Available fluconazo le 200 mg tablet TAKE 1 TABLET BY MOUTH EVERY OTHER DAY 01/27 completed Not Available Not Available Not Available ondansetr on HCl 4 mg tablet 02/26 completed Not Available Not Available Not Available prednison e 20 mg tablet 05/27 completed Not Available Not Available Not Available Tubersol 5 tub. unit/0.1 mL intraderm al injection solution Inject 0.1 mL every day by intrader mal route for 1 day. 06/17 completed [facility] [id number] Not Available Not Available Not Available prednison e 5 mg tablet TAKE 1 TO 3 TABLETS BY MOUTH ONCE DAILY 01/27 completed Not Available Not Available Not Available sulfasala zine 500 mg tablet,de layed release TAKE 2 TABLETS BY MOUTH TWICE DAILY 09/03 completed Not Available Not Available Not Available cyanocoba candy (vit B-12) 1,000 mcg tablet Take 1 tablet every day by oral route for 30 days. 09/20 completed Not Available Not Available Not Available metronida zole 500 mg tablet TAKE 1 TABLET BY MOUTH EVERY 12 HOURS FOR 7 DAYS; PLEASE REFRAIN FROM ALCOHOL WHILE TAKING THIS MEDICATI ON 11/12 completed Not Available Not Available Not Available azathiopr ine 50 mg tablet TAKE 2 TABLETS BY MOUTH ONCE DAILY active [employer] Not Available Not Available No t Available tramadol 50 mg tablet TAKE 1 TABLET BY MOUTH 4 TIMES DAILY NEEDED FOR PAIN WITH OTC TYLENOL active Dr. Hong, Rheum. Not Available Not Available Not Available triamcino lone acetonide 0.1 % topical cream APPLY CREAM EXTERNAL LY TWICE DAILY FOR UP TO 4 WEEKS (DO NOT APPLY TO FACE, GROIN OR ARMPITS) STOP FOR 2 WEEKS BEFORE RESTARTI NG 01/27 completed Not Available Not Available Not Available nystatin- triamcino lone 100,000 unit/gram -0.1 % topical ointment APPLY TO OINTMENT TOPICALL Y AFFECTED AREA TWICE DAILY FOR 5 - 7 DAYS NEEDED 01/27 completed Not Available Not Available Not Available meloxicam 7.5 mg tablet TAKE 2 TABLETS BY MOUTH ON DAY 1 THEN 1 PILL EVERY DAY FOR PAIN CONTROL active [employer] Not Available Not Available No t Available alprazola m 0.5 mg tablet Take 1 tablet twice a day by oral route as needed for 5 days. 09/03 completed Not Available Not Available Not Available amoxicill in 875 mg tablet 09/13 completed Not Available Not Available Not Available methocarb benjamin 750 mg tablet Take 1 tablet twice a day by oral route as needed for 30 days. active Not Available Not Available No t Available methotrex ate sodium 2.5 mg tablet TAKE 10 TABLETS BY MOUTH EVERY 7 DAYS 06/23 completed Not Available Not Available Not Available dicyclomi ne 20 mg tablet 08/02 completed Not Available Not Available Not Available diazepam 2 mg tablet 09/20 completed Not Available Not Available Not Available hydrocodo ne 7.5 mg-acetam inophen 325 mg tablet 09/13 completed Not Available Not Available Not Available cephalexi n 500 mg capsule Take 1 capsule by mouth three times daily for 7 days active Not Available Not Available No t Available lisinopri l 10 mg tablet TAKE 1 TABLET BY MOUTH ONCE DAILY 03/30 completed Not Available Not Available Not Available gabapenti n 300 mg capsule TAKE 1 TO 2 CAPSULES BY MOUTH ONCE DAILY AT BEDTIME active Not Available Not Available No t Available omeprazol e 20 mg capsule,d elayed release 05/27 completed Not Available Not Available Not Available folic acid 1 mg tablet TAKE 1 TABLET BY MOUTH ONCE DAILY 06/23 completed Not Available Not Available Not Available mupirocin 2 % topical ointment 08/19 completed Not Available Not Available Not Available ibuprofen 600 mg tablet 09/20 completed Not Available Not Available Not Available methylpre dnisolone 4 mg tablets in a dose pack USE DIRECTED 05/27 completed Not Available Not Available Not Available Vitamin D2 1,250 mcg (50,000 unit) capsule Take 1 capsule every week by oral route. 02/27 completed Not Available Not Available Not Available ondansetr on 4 mg disintegr ating tablet DISSOLVE 1 TABLET IN MOUTH THREE TIMES DAILY NEEDED active Not Available Not Available No t Available fluticaso ne propionat e 50 mcg/actua tion nasal spray,madie pension 05/27 completed Not Available Not Available Not Available doxycycli ne hyclate 100 mg tablet 07/03 completed Not Available Not Available Not Available naproxen 500 mg tablet TAKE 1 TABLET BY MOUTH TWICE DAILY NEEDED FOR PAIN active Not Available Not Available No t Available diazepam 5 mg tablet 02/15 completed Not Available Not Available Not Available amoxicill in 875 mg-potass ium clavulana te 125 mg tablet TAKE 1 TABLET BY MOUTH EVERY 12 HOURS FOR 10 DAYS 02/26 completed Not Available Not Available Not Available Fish Oil Concentra te 1,000 mg capsule Take 1 capsule every day by oral route for 30 days. 09/20 completed Not Available Not Available Not Available azithromy ebony 500 mg tablet 07/03 completed Not Available Not Available Not Available cyclobenz aprine 5 mg tablet TAKE 1 TABLET BY MOUTH TWICE DAILY NEEDED active Not Available Not Available No t Available rosuvasta tin 10 mg tablet TAKE 1 TABLET BY MOUTH ONCE DAILY active Not Available Not Available No t Available bupropion HCl XL 150 mg 24 hr tablet, extended release Take 1 tablet by mouth once daily active Not Available Not Available No t Available escitalop tessa 5 mg tablet Take 1 tablet every day by oral route for 30 days. 10/04 completed Not Available Not Available Not Available metoprolo l tartrate 25 mg tablet TAKE 1 TABLET BY MOUTH TWICE DAILY active Not Available Not Available No t Available nitrofura ntoin monohydra te/macroc rystals 100 mg capsule TAKE 1 CAPSULE (100 MG TOTAL) BY MOUTH EVERY 12 (TWELVE) HOURS FOR 5 DAYS. 12/01 completed Not Available Not Available Not Available Vyvanse 30 mg capsule TAKE 1 CAPSULE BY MOUTH ONCE DAILY FOR 30 DAYS 02/17 completed on hold for chest pain. Not Available Not Available Not Available Vyvanse 20 mg capsule Take 1 capsule every day by oral route for 30 days. 08/19 completed Not Available Not Available Not Available Vitamin D3 125 mcg (5,000 unit) tablet Take 1 tablet every day by oral route for 90 days. 01/27 completed Not Available Not Available Not Available Xifaxan 550 mg tablet 08/19 completed Not Available Not Available Not Available Vitamin D3 50 mcg (2,000 unit) capsule Take 1 capsule every day by oral route for 30 days. 09/20 completed Not Available Not Available Not Available Vascepa 1 gram capsule TAKE 2 CAPSULES BY MOUTH TWICE DAILY 03/30 completed Not Available Not Available Not Available Viberzi 75 mg tablet 05/27 completed Not Available Not Available Not Available Trintelli x 20 mg tablet TAKE 1 TABLET BY MOUTH ONCE DAILY IN THE MORNING 11/12 completed Not Available Not Available Not Available Annovera 0.15 mg-0.013 mg/24 hr vaginal ring INSERT 1 RING VAGINALL Y ONCE EVERY MONTH 03/30 completed Friederi ch Not Available Not Available Not Available EluRyng 0.12 mg-0.015 mg/24 hr vaginal ring INSERT 1 VAGINALL Y ONCE EVERY MONTH. LEAVE IN PLACE 3 WEEKS AND REMOVE FOR 1 WEEK active Not Available Not Available No t Available Nurte ODT 75 mg disintegr ating tablet active Not Available Not Available Not Available Flublok Quad (PF) 180 mcg (45 mcg x 4)/0.5 mL IM syringe active Not Available Not Available Not Available Vitals Date Recorded Body mass index (BMI) Body height Oxygen saturation Oxygen saturation in Arterial blood by Pulse oximetry Heart rate Respiratory rate Body temperature Body weight Systolic blood pressure Diastolic blood pressure Systolic blood pressure Diastolic blood pressure Provider Name and Address Organization Details Last Updated DateTime 3 30.2 kg/m2 177.8 cm 98 % 98 % 91 /min 16 /min 97.1 [degF] 24878.9 1 g 135 mm[Hg] 102 mm[Hg] 130 mm[Hg] 82 mm[Hg] Not Available [facility] 3 20:02:30 Date Recorded Body height Body mass index (BMI) Body weight Body temperature Heart rate Respiratory rate Oxygen saturation Oxygen saturation in Arterial blood by Pulse oximetry Systolic blood pressure Diastolic blood pressure Provider Name and Address Organization Details Last Updated DateTime 3 177.8 cm 29.3 kg/m2 01450.1 9 g 96.9 [degF] 100 /min 16 /min 98 % 98 % 150 mm[Hg] 110 mm[Hg] Jackelyn Carver RN [place] [facility] [employer] [facility] 3 12:56:02 Date Recorded Body height Body mass index (BMI) Body weight Body temperature Heart rate Respiratory rate Oxygen saturation Oxygen saturation in Arterial blood by Pulse oximetry Systolic blood pressure Diastolic blood pressure Provider Name and Address Organization Details Last Updated DateTime 3 177.8 cm 30.1 kg/m2 16195.2 6 g 96.1 [degF] 85 /min 16 /min 98 % 98 % 140 mm[Hg] 110 mm[Hg] WILNER [facility] [place] [employer] [facility] 3 08:32:19 Date Recorded Body height Body mass index (BMI) Body weight Body temperature Heart rate Heart rate Respiratory rate Oxygen saturation Oxygen saturation in Arterial blood by Pulse oximetry Systolic blood pressure Diastolic blood pressure Provider Name and Address Organization Details Last Updated DateTime 3 177.8 cm 29.7 kg/m2 95115.6 2 g 98.2 [degF] 76 /min 76 /min 16 /min 97 % 97 % 138 mm[Hg] 80 mm[Hg] Xavi Palencia [facility] [employer] [facility] 3 08:36:52 Date Recorded Body height Body mass index (BMI) Body weight Body temperature Heart rate Respiratory rate Oxygen saturation Oxygen saturation in Arterial blood by Pulse oximetry Systolic blood pressure Diastolic blood pressure Provider Name and Address Organization Details Last Updated DateTime 3 177.8 cm 30.2 kg/m2 54724.8 5 g 95.6 [degF] 71 /min 20 /min 98 % 98 % 122 mm[Hg] 88 mm[Hg] Jackelyn Carver RN [facility] [employer] [facility] 3 08:36:16 Social History Question Answer Notes LastModified by Organizat ion Details LastModified Time Tobacco Smoking Status [facility]23 08:23:34 Do You Have An Advance Directive? No Information not available 12/01/2022 Is Blood Transfusion Acceptable In An Emergency? Yes [email or web address] Information not available 01/20/2023 What Is Your Level Of Caffeine Consumption? Moderate [id number] Information not available 09/23/2022 What Is Your Code Status? Full Code [email or web address] Information not available 01/20/2023 In The 14 Days Before Symptom Onset, Have You Had Close Contact With A Laboratory-confir med COVID-19 While That Case Was Ill? No [email or web address] Information not available 01/20/2023 In The 14 Days Before Symptom Onset, Have You Had Close Contact With A Person Who Is Under Investigation For COVID-19 While That Person Was Ill? No [email or web address] Information not available 01/20/2023 What Type Of Diet Are You Following? GLUTENFREE [id number] Information not available 09/23/2022 What Is The Highest Grade Or Level Of School You Have Completed Or The Highest Degree You Have Received? [id number] Information not available 01/20/2023 How Many Days Of Moderate To Strenuous Exercise, Like A Brisk Walk, Did You Do In The Last 7 Days? 3 Information not available 01/20/2023 On Those Days That You Engage In Moderate To Strenuous Exercise, How Many Minutes, On Average, Do You Exercise? 60 Information not available 01/20/2023 Have There Been Any Changes To Your Family Or Social Situation? No Information no t available 01/20/2023 What Is The Fluoride Status Of Your Home? Fluoridated Information not available 01/20/2023 Do You Use Insect Repellent Routinely? Yes [email or web address] Information not available 01/20/2023 Where Do You Live? Apartment [email or web address] Information not available 01/20/2023 Do You Have A Medical Power Of Motorcycle Technician? No [email or web address] Information not available 01/20/2023 How Many Children Do You Have? 0 [email or web address] Information not available 01/20/2023 Do You Have Any Pets? No [email or web address] Information not available 01/20/2023 What Is Your Relationship Status? Single [id number] Information not available 09/23/2022 Do You Use Your Seat Belt Or Car Seat Routinely? Yes [email or web address] Information not available 01/20/2023 Are You Sexually Active? Yes [email or web address] Information not available 01/20/2023 Do You Have Smoke And Carbon Monoxide Detectors In Your Home? Yes [email or web address] Information not available 01/20/2023 Are You Passively Exposed To Smoke? No [email or web address] Information no t available 01/20/2023 Are There Any Smokers In Your House? No [email or web address] Information not available 01/20/2023 Do You Participate In Social Media? Yes [email or web address] Information not available 01/20/2023 What Types Of Sporting Activities Do You Participate In? Volleyball, Pickleball, Walk Information not available 01/20/2023 Do You Use Sunscreen Routinely? Yes [email or web address] Information not available 01/20/2023 Have You Recently Traveled Abroad? No [email or web address] Information not available 01/20/2023 Are You Currently In School? No [email or web address] Information not available 01/20/2023 Sex: Female Functional Status Question Answer Note LastModified by Organizat ion Details LastModified Time Do you use any illicit or recreational drugs? No [email or web address] Information not available 01/20/2023 What is your level of alcohol consumption? Occasional [id number] Information not available 09/23/2022 Are you currently employed? Yes Information not available 01/20/2023 What is your occupation? [employer] [email or web address] Information not available 01/20/2023 What is your exercise level? Moderate [id number] Information not available 09/23/2022 Mental Status Question Answer Note LastModified by Organization D etails LastModified Time Do you feel stressed (tense, restless, nervous, or anxious, or unable to sleep at night)? [id number] Information not available 01/20/2023 Family History Relationship Description Onset Age of this Age Resolved Age Notes LastModified by Organization Details LastModified Time Mother Malignant tumor of breast 45 Not available 01/20 08:23:33 Mother Hyperthyroid ism Not available 01/20 08:23:33 Sister Diabetes mellitus type I [id number] Not available 09/23/2022 20:02:05 Paternal Aunt Essential hypertension [email or web address] Not available 08:43:48 Medical History Condition Response HEADACHES/MIGRAINES Y ANXIETY DISORDER Y EAR OR HEARING PROBLEMS Y DIZZINESS Y ASTHMA Y ALLERGIES/HAYFEVER Y HYPOTENSION Y DEPRESSION (INCLUDING POST ) Y BOWEL PROBLEMS Y BACK / NECK PROBLEMS Y HYPERTENSION Y Gynecological History Statement/Question Response Abnormal Pap N Flow Moderate Date of LMP 03/03/2023 STIs/STDs Y Dislike of Light during Menstrual Headac he Y Do your menstrual headaches get severe N Date of Last Pap 07/26/2018 Duration of Flow (days) 7 Most Recent Mammogram Current Control Method Vaginal Rin g Age at Menarche 8 Breast Problems none Date of Last Colonoscopy Frequency of Cycle (Q days) 31 Most Recent Bone Density Sexually Active? Y Do you get headaches during your period Y Menses Monthly Y Date of Last Pap Smear Discharge none Obstetrics History GPAL:G 0 P 0 0 0 0 Immunizations Vaccine Type Date Status Note Provider Nam e and Address Organization Details Recorded Time influenza nasal, unspecified formulation 2 completed Not Available [facility] 09/23/2022 20:04:11 Influenza, split virus, quadrivalent, preservative 1 completed Not Available [facility] 09/23/2022 20:04:12 Influenza, split virus, quadrivalent, preservative 0 completed Not Available [facility] 09/23/2022 20:04:12 Influenza, split virus, quadrivalent, preservative 9 completed Not Available [facility] 09/23/2022 20:04:12 Past Encounters Encounter ID Performer Location Encounter Start Date Encounter Closed Date Diagnosis/Indication Diagnosis SNOMED-CT Code Diagnosis ICD10 Code [facility] [id number] [facility] Katya cuellar [facility] [place] [address] [address] 11/12/2020 00:00:00 11/12/2020 15:00:44 [id number] Adele Sousa MD [facility] Katya cuellar [facility] [place] [address] [address] 05/27/2021 00:00:00 05/27/2021 16:40:36 [id number] Adele Sousa MD [facility] Katya cuellar [facility] [place] [address] [address] 06/24/2021 00:00:00 06/24/2021 16:28:28 [id number] [facility] [place] [address] 08/25/2021 00:00:00 08/25/2021 12:04:08 [id number] Adele Sousa MD [facility] Katya cuellar [facility] [place] [address] [address] 01/27/2022 00:00:00 01/27/2022 09:58:45 [id number] Gregg Rosa MD [address] [address] 06/23/2022 00:00:00 06/23/2022 15:41:46 [id number] Gregg Rosa MD [address] [address] 09/03/2022 00:00:00 09/03/2022 12:16:50 [id number] Jackelyn Dobbs NP [address] [address] 12/01/2022 12:45:57 12/01/2022 13:18:28 Attention deficit hyperactivity disorder, predominantly inattentive type 89208499 F90.0 vyvanse 30 mg. UDS 12/01/22 Strain of back muscle 26 6472551 S39.012A flexeril prn. Hyperlipidemia 70141868 E78.5 trigs were 600, then 300s and feb 200s. Due for labs. Diet mods. Overweight 317928510 E66 .3 Diet and exercise. Going to day shift to work on health more. Ankylosing spondylitis 4166049 M45.[address] Hong. [id number] Jackelyn Dobbs NP [address] [address] 01/20/2023 08:21:13 01/20/2023 09:11:37 Hyperlipidemia 83009917 E78.5 trigs were 600, then 300s and feb 200s. Due for labs.last done in Aug 2022. Diet mods discussed. She is already gluten free and now to be low carb and low sugar. Essential hypertension 44141169 I10 lisinopril 10 mg po daily. Heart murmur 45718667 R0 1.1 US heart ordered. New murmur Chest pain 29232699 R07. 9 referring to cardiology . Activity as tolerated. Thyroid di sorder screening 661131496 Z13.29 tsh. nodule on thyroid per [facility] report. [id number] Jackelyn Dobbs NP [facility] [address] [place] [address] 02/17/2023 08:27:28 02/17/2023 09:12:41 Ankylosing spondylitis 4210856 M45.[address] Hong. He prescribes tramadol, meloxicam, gabapentin , azathiopri ne Anxiety 13589109 F41.9 Consider bupropion. Was on trintellex in the past. Attention deficit hyperactivity disorder, predominantly inattentive type 15767008 F90.0 vyvanse 30 mg. UDS 12/01/22 Vyvanse stopped due to heart issues.Off ered and discussed bupropion or strattera. Pt to check with cardiology and get echo prior to any new med considerat ion 02/17/23. Chest pain 94487029 R07. 9 Appt with cardiology next week, first week of feb 2023. Activity as tolerated. Hyperlipidemia 92295348 E78.5 trigs were 600, then 300s and feb 200s. Due for labs.last done in Aug 2022. Diet mods discussed. She is already gluten free and now to be low carb and low sugar. Labs from December 2022 on phone for review. Trigs 900s. Pt started on fish oil but may need vascepa and statin. Heart murmur 91306438 R0 1.1 US heart ordered. New murmur Gluten sensitivity 41279 1003 K90.41 will still eat rice. Essential hypertension 43511561 I10 lisinopril 10 mg po daily. Vitamin D deficiency 347 06409 E55.9 vit d po daily. [id number] Jackelyn Dobbs NP [facility] [address] [place] [address] 03/30/2023 08:26:25 03/30/2023 09:02:03 Nausea 488491967 R11.0 referring to gi for eval and treat.BLan rich diet.Stay hydrated with water. States she is nauseated even with water. Constipation 04106282 K5 9.00 stay hydrated. Increase fiber. Health Concerns Section Related Observation LastModified by Organization Detai ls LastModified Time None Recorded Concern Status LastModified by Organization Details LastModified Time None Recorded Advance Directives Directive N: Payers Insurance Date Sequence Insurance Name Policy Number Policy Reed Covered Member ID Reed Member ID Guarantor Name 05/03/2023 1 [facility] [id number] Yadira Harrington [id number] Carmina Harrington Notes Date Note Type Note Provider Name and Address Organization Details Recorded Time 12/01/2022 text/html Here for follow up on meds. ADHD- feeling well on vyvanse 30 mg. Only takes when working. States she is getting ready to go to day shift and excited. Feeling better concentration with medication. Sleeping well. Cleaning up diet. Hyperlipidemia- Was high. Trigs 600s, to 300s, then 267 in aug 2022. Due for labs again. Weight- needs to lose weight and working on low fat diet. Staying active. Muscle aches- flexeril prn. Jackelyn Dobbs NP [address], [place], [address], [employer] 12/01/2022 13:21:18 01/20/2023 text/html Here for [facility] follow up. [facility], [place], [place].CT head wo contrast- negative.CTA chest- 6 mm left lower lobe peripheral nodular opacity- fu in 1 year recommended. HTN- mother has high bp. BP has been running high for past 2+ months.Has gained weight from May to aug 2022. Has been gluten free, and eating as healthy as possible. Drinking green tea, sugar free. Occasional afternoon palpitation that slightly takes breath away. No V/dizziness. Feeling faint at times. +nausea. Has some GI issues. Has been on BCP. No excessive sweating. Chest pain under sternum and feeling tight even sitting still. Has occurred with activity too. Jackelyn Dobbs NP [address], [place], [address], [employer] 01/20/2023 09:05:33 02/17/2023 text/html Here for follow up on testing. States still having intermittent chest pain. Has been having better blood pressure. Having heart racing out of nowhere. States not her typical anxiety increased heart rate. Few times weekly. Having blurred vision at times. States bad GI symptoms. Has been on pepcid. Has decreased meal sizes, feeling bloated. Feeling lump in throat. No vomiting. ECHO is scheduled for tomorrow.Cardiology appt- Next week is first appt. HTN- controlled on lisinopril 10 mg.Hyperlipidemia- elevated on labs 09/02/22Ankylosing spondylitis- Seeing Dr. Hong. Seeing him next week. Migraine- better on nurtec. Stable.Depression/a nxiety- was on trintellex and then stopped it. Did not affect the adhd.ADHD- can't be on stimulant as it was causing worsening symptoms of palpitations and heart racing. Jackelyn Dobbs NP [address], [place], [address], [employer] 02/17/2023 09:10:42 03/30/2023 text/html Here with nausea . Has been all the time, but worse in the past 2-3 weeks.Vertigo type dizziness. Stomach burning and feeling a knot in throat.Feeling like swollen lymph nodes in neckFeeling hungry, but swallowing makes her feel nauseated and as if she could choke.Has been on omeprazole 20 mg po bid. No change in symptoms.Eating 1/2 portion of meal.Better symptoms in the morning, but worse during the day. Was [facility] 1[facility]2 weeks ago. Thought ear infection, but was told ears ok. Was on amox just in case. Took med and ears still feeling full, no pain. Hearing ok. LMP: 03/03/23-03/09/23 On NuvaRing. No MJ use.ETOH- off and on, but maybe one drink at a setting socially every 2 weeks. Jackelyn Dobbs NP [address], [place], [address], [employer] 03/30/2023 08:59:39 OBGyn Episode No OBEpisode recorded.
--- OUTSIDE RECORDS SUMMARY | 2025-01-10 15:38 | XMS_ITS | Clinical Summary ---
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 Name Role Phone Unavailable Primary Care Provider Unavailabl e Social History Tobacco Use Types Packs/Day Years Used Date Smoking Tobacco: Never Assessed Comments Unknown Sex and Gender Information Value Date Recorded Sex Assigned at Not on file Legal Sex Female 6:16 PM CDT Gender Identity Not on file Sexual Orientation Not on file Plan of Treatment Health Maintenance Due Date Last Done Comments Cervical Cancer Screening Pa p Smear (Age 21 to 29) Every 3 Years 1998 Cervical Cancer Screening 1998 Annual Physical 2001 HPV Vaccines (1 - 3-dose series) 2013 Hepatitis C 2016 DTaP, Tdap and Td Vaccines ( 1 - Tdap) 2017 Hepatitis B Vaccines (1 of 3 - 19+ 3-dose series) 2017 COVID-19 Vaccine (2023-2 5 season) 2024 Meningococcal B Vaccine Aged Out No l onger eligible based on patient's age to complete this topic Meningococcal Vaccine Aged Out No juve amy eligible based on patient's age to complete this topic Pneumococcal Vaccine: Pediat rics (0 to 5 Years) and At-Risk Patients (6 to 49 Years) Aged Out No longer eligible b ased on patient's age to complete this topic RSV Immunizations Under 20 Months Aged Out No longer eligible based on patient's age to complete this topic
--- OUTSIDE RECORDS SUMMARY | 2025-01-10 15:38 | XMS_ITS | Clinical Summary ---
Author Organization [facility] Address [address] [place] [address] Care Team Providers Care Arresting Gear Operator Name Role Phone ChristosChasidy tran JUNI Primary Care Provider Ronaldo Torres MD Unavailable [phone] Allergies Active Allergy Reactions Criticality Noted Date Comments Gluten Stomach upset Low 01/25/2019 Nickel Rash Medium Medications EluRyng 0.12-0.015 mg/24 hr vaginal ringIndications: Contraception,la st changed08/16/21 Insert 1 each into the vagina every 28 (twenty-eight) days 06/24/20 20 Active ALPRAZolam (XANAX) 0.5 mg tabletIndication s:anxiety Take 1 tablet (0.5 mg total) by mouth as needed 11/17/19 21 Active triamcinolone (KENALOG) 0.1 % creamIndications :skin rash Apply 1 application topically 2 (two) times a day as needed 07/30/19 22 Active ibuprofen (ADVIL,MOTRIN) 200 mg tab/cap Take 2 tablet/capsule (400 mg total) by mouth every 6 (six) hours as needed for pain Active melatonin tablet Take 1 tablet (3 mg total) by mouth Active influenza quadrivalent [id number] (Flublok Quad , PF,) 180 mcg (45 mcg x 4)/0.5 mL syringe 05/07/20 20 Active fluconazole (DIFLUCAN) 200 mg tablet Take 1 tablet (200 mg total) by mouth every other day 07/16/20 21 Active gabapentin (NEURONTIN) 300 mg capsule 09/26/19 22 Active nystatin ointment nystatin 100,000 unit/gram topical ointment Active nystatin-triamci nolone ointment nystatin-triamcino lone 100,000 unit/gram-0.1 % topical ointment APPLY TO OINTMENT TOPICALLY AFFECTED AREA TWICE DAILY FOR 5 - 7 DAYS NEEDED Active omeprazole (PriLOSEC) 20 mg capsule omeprazole 20 mg capsule,delayed release Active traMADoL (ULTRAM) 50 mg tablet 09/26/[address] (VOLTAREN) 75 mg EC tablet Take 1 tablet (75 mg total) by mouth 2 (two) times a day 09/21/19 24 Active golimumab (Simponi ARIA) 12.5 mg/mL solution Simponi ARIA unspecified unspecified 07/26/18 70 Active minoxidiL (LONITEN) 2.5 mg tablet TAKE 1/4 (ONE-FOURTH) TABLET BY MOUTH ONCE DAILY 10/09/19 25 Active ondansetron (ZOFRAN) 4 mg tablet Take 1 tablet (4 mg total) by mouth 10/04/19 25 Active rimegepant (Nurtec ODT) tablet,disintegr ating DISSOLVE 1 TABLET BY MOUTH EVERY OTHER DAY 04/26/20 23 Active Zepbound 5 mg/0.5 mL pen injector INJECT 1 SYRINGE SUBCUTANEOUSLY ONCE A WEEK Active TiZANidine (ZANAFLEX) 2 mg capsule TAKE 1 TO 2 CAPSULES BY MOUTH AT NIGHT 10/04/19 25 Active traZODone (DESYREL) 50 mg tablet TAKE 1 TABLET BY MOUTH EVERY DAY AT BEDTIME NEEDED FOR INSOMNIA 09/14/19 25 Active Active Problems Problem Noted Date Diagnosed Date Unable to concentrate 09/15/2021 COVID-19 08/25/2021 Elevated C-reactive protein 08/25/2021 Hyperlipidemia 08/21/2021 Orthopedic hardware present 06/06/2021 Overview (06/06/2021): Added automatically from request for surgery [id number] Insomnia 05/27/2021 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 Right wrist pain 06/05/2020 Overview (06/05/2020): Added automatically from request for surgery [id number] Abdominal pain, generalized 01/05/2018 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 Pain of hand 04/02/2015 Arthralgia of shoulder 12/13/2014 Dysthymic disorder 08/25/2013 Concussion 07/05/2013 Encounters Date Type Department Care Team Description 10/24/2024 3:50 PM CDT Ancillary Procedure [facility] Orthopaedic Surgery [address] [place] [address] 2nd [address] [place] [address] Pain in thoracic spine 10/24/2024 3:45 PM CDT Procedure visit [facility] Orthopaedic Surgery [id number] [place] [address] 2nd Floor [address] [place] [address] Matheus Dupree MD Pain in thoracic spine (Primary Dx) 10/20/2024 3:20 PM CDT - 10/20/2024 11:59 PM CDT Hospital Encounter [facility] [id number] [place] [address] Pain in thoracic spine Discharge Disposition: Discharge to home or self care 10/20/2024 2:45 PM CDT Office Visit [facility] - [facility] [id number] [place] [phone] Matheus Dupree MD Pain in thoracic spine (Primary Dx) from Last 3 Months Surgical History Surgery Date Site/Laterality Comments MYRINGOTOMY W/ TUBES 2001, 2011 Myringotomy - With Ventilating Tube Insertion - (Added by TW Conv) TONSILLECTOMY AND ADENOIDECTOMY 07/26/2017 - 07/25/2018 WRIST SURGERY 07/24/2020 Right COLONOSCOPY 05/25/2016 UPPER GASTROINTESTINAL ENDOSCOPY 07/26/2020 - 07/25/2021 Medical History Medical History Date Comments Hx Other Medical Back Pain; Comm ents: JNS 11/13/2014 - Hx Other Medical Broken finger 2 014; Comments: JNS 11/13/2014 - Hx Other Medical Tube in ears; C omments: JNS 11/13/2014 - Motion sickness Anxiety Depression Sinusitis Covid-19 08/25/2021 Family History Medical History Relation Name Comments Cancer Maternal Great-Grandfather F amily history of malignant neoplasm - (Added by TW Conv) Heart disease Maternal Great-Grandfather Family history of cardiac disorder - (Added by [employer] Conv) Hypertension Mother Family history of hypertension - (Added by [employer] Conv) Hypothyroidism Mother Family histor y of hypothyroidism - (Added by [employer] Conv) Diabetes type II Other 1 Family hist ory of Diabetes mellitus type 2; Heart disease Other 2 Family history of Heart problems; Hypertension Other 3 Family history of Hypertension; Stroke Other 4 Family history of Stroke; Cancer Other 5 Family history of Cancer, unknown; Arthritis Other 6 Family history of arthritis - Relation: Grandparent (Added by TW Conv) Stroke Other 7 Family history of cerebrovascular accident - Relation: Grandparent (Added by [employer] Conv) Diabetes Other 8 Family history of diabetes mellitus - Relation: Grandparent (Added by [employer] Conv) [place] legs Sister [place] - (Adde d by [email or web address]) Anesthesia problems Neg Hx Relation Name Status Comments Maternal Great-Grandfather Mother Other 1 Other 2 Other 3 Other 4 Other 5 Other 6 Other 7 Other 8 Sister Social History Tobacco Use Types Packs/Day Years Used Date Smoking Tobacco: Never Smokeless Tobacco: Never Alcohol Use Standard Drinks/Week Comments Not Currently 0 (1 standard drink = 0.6 oz pur e alcohol) AUDIT-C Answer Date Recorded Q1: How often do you have a drink containing alc ohol? 2-4 times a month 09/23/2021 Q2: How many drinks containi ng alcohol do you have on a typical day when you are drinking? 1 or 2 09/23/2021 Q3: How often do you have si x or more drinks on one occasion? 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 Gender Identity Not on file Sexual Orientation Straight 03/09/2021 11 :39 PM CDT Obstetrics History Last Filed Vital Signs Vital Sign Reading Time Taken Comments Blood Pressure 142/84 09/24/2021 9:30 AM COMMERCIAL MAKEUP ARTIST Pulse 66 09/24/2021 9:40 AM COMMERCIAL MAKEUP ARTIST Temperature 36.2 C (97.2 F) 09/24/2021 9:40 AM COMMERCIAL MAKEUP ARTIST Respiratory Rate 18 09/24/2021 9:40 AM COMMERCIAL MAKEUP ARTIST Oxygen Saturation 95% 09/24/2021 9:40 AM COMMERCIAL MAKEUP ARTIST Inhaled Oxygen Concentration - - Weight 70.3 kg (155 lb) 10/20/2024 2:43 PM CDT Height 177.8 cm (5' 10) 10/20/2024 2:43 PM CDT Body Mass Index 22.24 10/20/2024 2:43 PM CDT Plan of Treatment Health Maintenance Due Date Last Done Comments Cervical Cancer Screening 1998 Depression Screening 1998 Hepatitis C Screening 1998 DTaP/Tdap/Td Vaccine (2 - Tdap) 2009 08/25/2003 HPV Vaccines (1 - Risk 3-dose series) 2009 Hepatitis B Screening 2016 Regular Well Visit/Exam 18-64 2016 Varicella Vaccines (1 of 2 - 13+ 2-dose series) 07/07/2022 Covid-19 Vaccine (3 - season) 2024 10/13/2020, 09/21/2020 Influenza Vaccine (Season Ended) 2025 06/09/2022, 05/07/2021, 06/17/2020, Additional history exists Pneumococcal vaccine <65 Aged Out No longer eligible based on patient's age to complete this topic Medical Devices Implanted Type Area Practice Specialist Device Identifier Shelf Expiration Date Model / Serial / Lot [employer] [id number] 6 Hole Shortening Ulna Plate Bone Titanium Sterile - [id number] Implanted:Qty: 1 on 07/24/2020 by Ronaldo Torres MD at [facility] Plate Right: Ulna [employer] [id number] / / [employer] [id number] 3.5mm 12mm Hexalobe Screw Bone Titanium Nonsterile Small Fragment - [id number] Implanted:Qty: 6 on 07/24/2020 by Ronaldo Torres MD at [facility] Screw Right: Ulna [employer] [id number] / / [employer] [id number] 3.5mm 16mm Nonlock Hexalobe Head Screw Bone Nonsterile - [id number] Implanted:Qty: 1 on 07/24/2020 by Ronaldo Torres MD at [facility] Right: Ulna [employer] [id number] / / Procedures Procedure Name Priority Date/Time Associated Diagnosis Comments POCUS INJ SINGLE/MULTIPLE TRIGGER POINTS 1 OR 2 Schedule Routine, Read Routine (OP Routine) 10/24/2024 3:49 PM CDT Pain in thoracic spine CHG US GUIDANCE NEEDLE PLACEMENT IMG S&I Routine 10/24/2024 3:45 PM CDT Pain in thoracic spine WI INJECTION SINGLE/OCEAN RESCUE LIEUTENANT TRIGGER POINT 1/2 MUSCLES Routine 10/24/2024 3:45 PM CDT Pain in thoracic spine XR SPINE THORACIC 2 VIEWS Schedule Routine, Read Routine (OP Routine) 10/20/2024 3:26 PM CDT Pain in thoracic spine from Last 3 Months Results * POCUS INJ SINGLE/MULTIPLE TRIGGER POINTS 1 OR 2 (10/24/2024 3:49 PM CDT) Narrative RAD[facility] - 10/24/2024 3:49 PM CDT This procedure was performed and interpreted by the provider. Please refer to the provider's procedure/OR operative note for results. us Matheus Dupree MD POCUS ORDERABLES Final R esult [facility] * WI INJECTION SINGLE/OCEAN RESCUE LIEUTENANT TRIGGER POINT 1/2 MUSCLES, CHG US GUIDANCE NEEDLE PLACEMENT IMG S&I (10/24/2024 3:45 PM CDT) Narrative Matheus Dupree MD - 10/24/2024 3:45 PM CDT Matheus Dupree MD 10/24/2024 5:03 PM Ultrasound-guided right thoracic paraspinal trigger point injection Performed by: Matheus Dupree MD Authorized by: Matheus Dupree MD Site marked: the procedure site was marked Consent obtained:: Verbal Site/side marked: Yes INDICATIONS: Myofascial pain. Location: R thoracic paraspinal Ultrasound guidance: Yes Ultrasound guidance used for: Pre-procedure marking and real-time guidance Sterile ultrasond techniques: Sterile gel and sterile probe covers were used Ultrasound note: Informed consent was obtained including discussion of potential benefits and risks with the risks including infection and bleeding. She was positioned prone and the sites of greatest tenderness to palpation were palpated and marked with three sites of the right mid to lower thoracic paraspinals. Skin was prepped with Betadine. A sterile ultrasound probe cover was applied with the linear ultrasound probe. Under sterile technique and continuous needle visualization, a 25 gauge 1.5 inch needle was introduced from a distal to proximal approach with dry needling performed prior to injection of a mixture of 1 milliliter of 1% lidocaine and 1 milliliter of 0.25% bupivacaine at each of three sites. She tolerated procedure well with no immediate complications. Images were saved with the ultrasound machine to be transferred to the electronic medical record. Needle size: 25 G Number of muscles: 1 or 2 Approach: Distal to proximal. Medications: 3 mL BUPivacaine HCl 0.25 % (2.5 mg/mL); 3 mL lidocaine 10 mg/mL (1 %) Patient tolerance: Patient tolerated the procedure well with no immediate complications us Matheus Dupree MD IN CLINIC/BEDSIDE ORDERA BLES Final Result * XR Spine Thoracic 2 Views (10/20/2024 3:26 PM CDT) Anatomical Region Laterality Modality Spine N/A Computed Radiogr aphy 10/20/2024 3:47 PM CDT Impressions 10/20/2024 4:01 PM CDT No thoracic compression fracture. Dictated by: Adriel Lazo M.D. The radiology attending physician has personally reviewed this study, and had reviewed and/or edited this written report and agrees with it. Electronically signed by: Puneet Fitzpatrick D.O. Narrative 10/20/2024 4:01 PM CDT EXAMINATION: XR SPINE THORACIC 2 VIEWS HISTORY: Thoracic spine pain COMPARISON: None available. FINDINGS: Vertebral body heights of the thoracic spine are maintained. Minimal degenerative disc disease of the midthoracic spine. Procedure Note Puneet Fitzpatrick, DO - 10/20/2024 EXAMINATION: XR SPINE THORACIC 2 VIEWS HISTORY: Thoracic spine pain COMPARISON: None available. FINDINGS: Vertebral body heights of the thoracic spine are maintained. Minimal degenerative disc disease of the midthoracic spine. IMPRESSION: No thoracic compression fracture. Dictated by: Adriel Violet, M.D. The radiology attending physician has personally reviewed this study, and had reviewed and/or edited this written report and agrees with it. Electronically signed by: Puneet Fitzpatrick D.O. Matheus Dupree MD IMG XR PROCEDURES Final Result from Last 3 Months Insurance CHOICE PLUS CHOICE PLUS CHOICE PLUS Care Teams Arresting Gear Operator Relationship Specialty Start Date End Date Chasidy Warren NP PCP - General Nurse Practitioner 10/18/19 Ronaldo Torres MD Surgeon Orthopedic Surgery 07/24/20
--- OUTSIDE RECORDS SUMMARY | 2025-01-10 15:38 | XMS_ITS | Referral Summary ---
Author Organization [facility] Address [address] [place] [phone] Care Team Providers Care Photoengraving Sketch Maker Name Role Phone Chasidy Warren JUNI Primary Care Provider [phone] Ronaldo Torres MD Unavailable [phone] Encounters Date Type Department Care Team Description 10/24/2024 3:50 PM CDT Ancillary Procedure [facility] Orthopaedic Surgery [address] [place] [address] [address]nd [address] [place] [phone] Pain in thoracic spine 10/24/2024 3:45 PM CDT Procedure visit [facility] Orthopaedic Surgery [address] [place] [address] [address]nd [address] [place] [phone] Mathues Dupree MD Pain in thoracic spine (Primary Dx) 10/20/2024 3:20 PM CDT - 10/20/2024 11:59 PM CDT Hospital Encounter [facility] [address] [place] [address] [id number] Pain in thoracic spine Discharge Disposition: Discharge to home or self care 10/20/2024 2:45 PM CDT Office Visit [facility] ([facility]) - [facility] [address] [place] [phone] Matheus Dupree MD Pain in thoracic spine (Primary Dx) from Last 3 Months Allergies Active Allergy Reactions Criticality Noted Date [...] mg total) by mouth Active influenza quadrivalent [id number] (Flublok Quad , PF,) 180 mcg (45 [...] (06/06/2021): Added automatically from request for surgery [id number] Insomnia 05/27/2021 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 Right wrist pain 06/05/2020 Overview (06/05/2020): Added automatically from request for surgery [id number] Abdominal pain, generalized 01/05/2018 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 Pain of hand 04/02/2015 Arthralgia of shoulder 12/13/2014 Dysthymic disorder 08/25/2013 Concussion 07/05/2013 Social History Tobacco Use Types Packs/Day Years [...] on file Legal Sex Female 3:37 AM ENGINE 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 OPERATOR Gender Identity Not on file Sexual Orientation Straight 03/09/2021 11 :39 PM CDT Last Filed Vital Signs Vital Sign Reading Time Taken Comments Blood Pressure 142/84 09/24/2021 9:30 AM ENGINE LATHE OPERATOR Pulse 66 09/24/2021 9:40 AM ENGINE LATHE OPERATOR Temperature 36.2 C (97.2 F) 09/24/2021 9:40 AM ENGINE LATHE OPERATOR Respiratory Rate 18 09/24/2021 9:40 AM ENGINE LATHE OPERATOR Oxygen Saturation 95% 09/24/2021 9:40 AM ENGINE LATHE OPERATOR Inhaled Oxygen Concentration - - Weight 70.3 kg (155 lb) 10/20/2024 2:43 PM CDT Height 177.8 cm (5' 10) 10/20/2024 2:43 PM CDT Body Mass Index 22.24 10/20/2024 2:43 PM CDT Plan of Treatment Not on file Medical Devices Implanted Type Area Roving Winder Device Identifier Shelf Expiration Date Model / Serial / Lot [employer] [id number] 6 Hole Shortening Ulna Plate Bone Titanium Sterile - [id number] Implanted:Qty: 1 on 07/24/2020 by Ronaldo Torres MD at [facility] Plate Right: Ulna [employer] [id number] / / [employer] [id number] 3.5mm 12mm Hexalobe Screw Bone Titanium Nonsterile Small Fragment - [id number] Implanted:Qty: 6 on 07/24/2020 by Ronaldo Torres MD at [facility] Screw Right: Ulna [employer] [id number] / / [employer] [id number] 3.5mm 16mm Nonlock Hexalobe Head Screw Bone Nonsterile - [id number] Implanted:Qty: 1 on 07/24/2020 by Ronaldo Torres MD at [facility] Right: Ulna [employer] [id number] / / Procedures Procedure Name Priority Date/Time Associated Diagnosis Comments POCUS INJ SINGLE/MULTIPLE TRIGGER POINTS 1 OR 2 Schedule Routine, Read Routine (OP Routine) 10/24/2024 3:49 PM CDT Pain in thoracic spine CHG US GUIDANCE NEEDLE PLACEMENT IMG S&I Routine 10/24/2024 3:45 PM CDT Pain in thoracic spine CT INJECTION SINGLE/SPEECH THERAPY ASSISTANT TRIGGER POINT 1/2 MUSCLES Routine 10/24/2024 3:45 [...] POCUS ORDERABLES Final R esult [facility] * CT INJECTION SINGLE/SPEECH THERAPY ASSISTANT TRIGGER POINT 1/2 MUSCLES, CHG US GUIDANCE [...] the procedure well with no immediate complications Matheus Dupree MD IN CLINIC/BEDSIDE ORDERA BLES [...] Final Result from Last 3 Months Insurance [facility] CHOICE PLUS [facility]PPO Address: [place] [address] [facility] CHOICE PLUS [facility]/PPO Address: [place] [address] [facility] CHOICE PLUS [facility] HMO/PPO Address: [facility] [id number] [place] [address] Care Teams Photoengraving Sketch Maker Relationship Specialty Start Date End Date Chasidy Warren NP PCP - General Nurse Practitioner 10/18/19 Ronaldo Torres MD Surgeon Orthopedic Surgery 07/24/20
--- OUTSIDE RECORDS SUMMARY | 2025-01-10 15:38 | XMS_ITS | Clinical Summary ---
Author Organization [facility] Address [address] [place] [address] Phone Care Team Providers Care Whipped Topping Finisher Name Role Phone Brandan Adam MD Primary Care Provider [phone] Social History Tobacco Use Types Packs/Day Years Used Date Smoking Tobacco: Never Assessed Intimate Partner Violence Answer Date R ecorded Feels physically and emotionally safe Not on gene e 12/23/2023 Fear of partner Not on file 12/23/2023 Housing Stability Answer Date Recorded Housing situation Not on file 12/23/2023 Worried about losing housing Not on file Comments Unknown Sex and Gender Information Value Date Recorded Sex Assigned at Female 12/23/2023 12:27 PM EDT Legal Sex Female 12:15 PM EDT Gender Identity Female 12/23/2023 12:27 PM EDT Sexual Orientation Straight 12/23/2023 12 :27 PM EDT Plan of Treatment Health Maintenance Due Date Last Done Comments MMR Vaccines (1 of 1 - Standard series) 1999 DTaP/Tdap/Td Vaccines (1 - Tdap) 2005 Varicella Vaccines (1 of 2 - 13+ 2-dose series) 2011 HPV Vaccines (1 - 3-dose series) 2013 Hepatitis B Screening 2016 Hepatitis C Screening 2016 Well Adult Exam (Age 18+ Annual Physical) 2016 Hepatitis B Vaccines (1 of 3 - 19+ 3-dose series) 2017 COVID-19 Vaccine (1 - 2023-2 5 season) 2024 Influenza Vaccine (Season Ended) 2025 Pap Smear 01/05/2026 01/05/2023, 01/05/2023 Zoster Vaccines (1 of 2) 2048 HIV Screening Completed 10/24/2024, 08/25/2021 HIB Vaccines Aged Out No longer eligi ble based on patient's age to complete this topic Hepatitis A Vaccines Aged Out No long er eligible based on patient's age to complete this topic IPV Vaccines Aged Out No longer eligi ble based on patient's age to complete this topic Meningococcal B Vaccine Aged Out No l onger eligible based on patient's age to complete this topic Meningococcal Vaccine Aged Out No juve amy eligible based on patient's age to complete this topic Pneumococcal Vaccine: 0-49 Years Aged Out No longer eligible b ased on patient's age to complete this topic Rotavirus Vaccines Aged Out No longer eligible based on patient's age to complete this topic Insurance [facility] Care Teams Whipped Topping Finisher Relationship Specialty Start Date End Date Brandan Adam MD [address] [place] [id number] PCP - General Family Medicine 12/23/23
--- OUTSIDE RECORDS SUMMARY | 2025-01-10 15:38 | XMS_ITS | Continuity of Care Document ---
Author Organization [facility] Address [address] [facility] [address] [place] [address] Phone Care Team Providers Care Powder Mixer Name Role Phone Dom GRAY NP, Rod Unavailable Unavailable Allergies, Adverse Reactions, Alerts Substance Reaction Status Criticality No Known Allergies Active No Inform ation Medications Medication Instructions Dosage Effective Dates (start - stop) Status Comments Flublok Quad (PF) 180 mcg (45 mcg x 4)/0.5 mL IM syringe - Active cyclobenzaprine 5 mg tablet - Active Trintellix 20 mg tablet - Ac tive NuvaRing 0.12 mg-0.015 mg/24 hr vaginal - Active Procedures Procedure Date Perc Test PREVENTIVE COUNSELING, INDIV New (Level 4) OFFICE/OUTPATIENT VISIT Oc New (Level 4) OFFICE/OUTPATIENT VISIT Oc Advance Directives Directive Yes / No Effective Date File Name No Information Encounters Encounter Description Practice Location Reason(s) For Visit Diagnoses Date Provider Providers Copied on Encounter PREVENTIVE COUNSELING, INDIV [facility], [address] [facility] , [place], [place], [id number], [place] tel:[phone] [facility] reaction, food (chief complaint) Oth adverse food reactions, not elsewhere classified, initAllergy to other foodsChronic rhinitis 0 Dom Velasco. [address] [facility], [facility] [address] [facility] [address], [place], [address], [place]. tel:[phone] Referring Provider: Rod Fernandes [facility], [address] [facility] [address], [place], [address]. tel:[phone] Family History Family Member Type Diagnosis Age At Onset No Information Payers Payer name Insurance type Covered green party ID Toy blanca(s) [facility] CI [id number] Social History Type Description Quantity Date Captured Comments Alcohol Use Details Unknown Caffeine Use Details Unknown Tobacco Use Status Current non-smoker 20 Smoking Status Never smoker Non-Smoking Tobacco Use Details : No Details Available : No Details Available Sex Female Vital Signs Date / Time: Height Weight BMI Pulse Rate Blood Pressure Temperature Respiratory Rate Body Surface Area Head Circumference Head Circ. Percentile Wt./Francesco. Percentile BMI percentile Pulse Ox Inhaled Ox 2:46 PM 70.00 in 94.347 kg (208.00 lbs) 29.8 4 kg/m eter (2) 90 /min 122/70 mm[Hg] 97.90 F 100 % Chief Complaint And Reason For Visit From encounter dated '05/20/2020 14:40'. reaction, food (chief complaint). Description: Carmina is a 20 year old female with a history of food reactions to gluten who presents today with concern for gluten allergy. She also reports seasonal allergy symptoms, and is interested in environmental and seasonal allergy testing today. This is her initial visit. She is unaccompanied today.She started to notice in high school that when she eats gluten, she has diarrhea, and stabbing pains in her stomach. She reports that inher senior year of high school (approximately 4 years ago), she had an Endoscopy and Colonoscopy through [facility]. She reports that she was diagnosed with IBS, and was told at that time that she does not have Celiac Disease.She last ate gluten this morning. Within 30 minutes, she had stomach pain, and watery stool. She reports that she can tolerate gluten in small amounts. She reports that when eating wheat products, she has some reactions to it but to a lesser extent. She eats mostly gluten free items that do not contain wheat. She reports that she had dumplings 2 weeks ago and "felt like I was dying. She ate 6 dumplings from [employer]. Within 30 minutes, she developed stabbing pain, diarrhea, and nausea. She denies any symptoms with her food reactionsoutside of her GI symptoms. Denies any rashes or trouble breathing with reactions.She has oral itching with strawberries.She has seasonal (worse in Fall) allergy symptoms. Primary symptoms are runny nose and sneezing. She will take an antihistamine rarely as needed. Denies year-round symptoms.She denies contact allergies, but does report a skin reaction when she wears elastic that is too tight.She reports being stung by something on her lefthand, and her hand became swollen. She reports that she could not move her fingers. Swelling resolved in 3 days. She also has welts with mosquito bites. She denies any other reactions outside of large local reactions to insect stings and bites.Patient denies a history of asthma, eczema, diagnosed food allergy, medication allergies, urticaria/angioedema, recurrent infections, contact dermatitis, latex allergy or stinging insect hypersensitivity.She had a history of acute respiratory distress in infancy. She used a nebulizer (?albuterol) but unsure of medication. She denies needing albuterol outside of this illness. PMH: Depression, InsomniaIUTD No known medication allergiesSHx: Lives in [place] with her mother, father, sister, and dog. House age- unsure, has lived there her whole life. One dog- pitbull mix. Central A/C and electric heat. Carpet in bedroom, and rugsin main areas. No dust covers. Unfinished basement, if it rains extra hard the basement will flood. No smokers in the home. 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 Graduates in November 2020. Wants to work in L&D after graduation. Reason For Referral Reason For Referral No Information Plan Of Treatment Date Type Action Status Future Order: Lab Order Celiac D isease Profile W/ Reflex ([id number]), Ordered on: Ordered Future Order: Lab Order Wheat Ig E ([id number]), Ordered on: Ordered Future Order: Lab Order Immunogl obulin E, Total ([id number]), Ordered on: Ordered History Of Present Illness Encounter Date Complaint History Of Prese nt Illness reaction, food Carmina is a [age] year old female with a history of food reactions to gluten who presents today with concern for gluten allergy. She also reports seasonal allergy symptoms, and is interested in environmental and seasonal allergy testing today. This is her initial visit. She is unaccompanied today.She started to notice in high school that when she eats gluten, she has diarrhea, and stabbing pains in her stomach. She reports that in her senior year of high school (approximately 4 years ago), she had an Endoscopy and Colonoscopy through [facility]. She reports that she was diagnosed with IBS, and was told at that time that she does not have Celiac Disease.She last ate gluten this morning. Within 30 minutes, she had stomach pain, and watery stool. She reports that she can tolerate gluten in small amounts. She reports that when eating wheat products, she has some reactions to it but to a lesser extent. She eats mostly gluten free items that do not contain wheat. She reports that she had dumplings 2 weeks ago and felt like I was dying. She ate 6 dumplings from [employer]. Within 30 minutes, she developed stabbing pain, diarrhea, and nausea. She denies any symptoms with her food reactions outside of her GI symptoms. Denies any rashes or trouble breathing with reactions.She has oral itching with strawberries.She has seasonal (worse in Fall) allergy symptoms. Primary symptoms are runny nose and sneezing. She will take an antihistamine rarely as needed. Denies year-round symptoms.She denies contact allergies, but does report a "skin reaction when she wears elastic that is too tight.She reports being stung by something on her left hand, and her hand became swollen. She reports that she could not move her fingers. Swelling resolved in 3 days. She also has welts" with mosquito bites. She denies any other reactions outside of large local reactions to insect stings and bites.Patient denies a history of asthma, eczema, diagnosed food allergy, medication allergies, urticaria/angioedema, recurrent infections, contact dermatitis, latex allergy or stinging insect hypersensitivity.She had a history of acute respiratory distress in infancy. She used a nebulizer (?albuterol) but unsure of medication. She denies needing albuterol outside of this illness. PMH: Depression, InsomniaIUTD No known medication allergiesSHx: Lives in [place] with her mother, father, sister, and dog. House age- unsure, has lived there her whole life. One dog- pitbull mix. Central A/C and electric heat. Carpet in bedroom, and rugs in main areas. No dust covers. Unfinished basement, if it rains extra hard the basement will flood. No smokers in the home. Works as a [employer] PT. 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 Graduates in November 2020. Wants to work in L&D after graduation. Functional Status Date Functional Assessmen t No Information Instructions Date Instruction Additional Infor mation No Information Assessments Type Assessment Date assessment Oth adverse food reactions, not elsewhere classified, init assessment Allergy to other foods 20 impression assessment Chronic rhinitis Patient Care Teams Name Effective Dates (start - stop) Status Members No Information
--- OUTSIDE RECORDS SUMMARY | 2025-01-10 15:38 | XMS_ITS | Clinical Summary ---
Author Organization [facility] Address [address] [facility] [place] [address] Care Team Providers Care Large Animal Veterinarian Name Role Phone Chasidy Warren FERNANDA-FARM EQUIPMENT SERVICE TECHNICIAN Primary Care Provider + Source Comments [facility],non-owned Affiliates and Associated Physician Practices is amultiple site organization consisting of ambulatory clinics and hospital sitesin [place], [place], [place] and [place]. This disclosure is being madepursuant to the Care Everywhere program and may not contain all information available regarding this patient. Last updated 18.[facility] Allergies Active Allergy Reactions Criticality Noted Date Comments Gluten Meal GI Discomfort 01/25/2019 Nickel Rash Medium 02/24/2021 Medications * This document contains information received from the source organization and may not represent a complete record from that organization. * Be aware that medications may not be up to date on this document. Alwaysverify current medications with the patient. etonogestrel-e thinyl estradiol (ELURYNG) 0.12-0.015 MG/24HR vaginal ring EluRyng 0.12 mg-0.015 mg/24 hr vaginal ring INSERT 1 INTO VAGINA ONCE EVERY MONTH; LEAVE IN PLACE FOR 3 WEEKS AND REMOVE FOR 1 WEEK 0 Active ALPRAZolam (XANAX) 0.5 MG tablet alprazolam 0.5 mg tablet TAKE 1 TABLET BY MOUTH TWICE DAILY NEEDED FOR 5 DAYS Active acetaminophen (Tylenol) 325 MG tablet Tylenol 325 mg tablet Active buPROPion XL 24hr (Wellbutrin-XL ) 150 MG tablet Take 1 (one) tablet by mouth once daily 3 Active diclofenac sodium EC (Voltaren) 75 MG tablet Take 1 (one) tablet by mouth 2 times daily 4 Active gabapentin (Neurontin) 300 MG capsule TAKE 1 TO 2 CAPSULES BY MOUTH ONCE DAILY AT BEDTIME 4 Active golimumab (Simponi Aria) 50 MG/4ML injection Simponi ARIA unspecified unspecified Active melatonin 3 MG tablet Take 1 (one) tablet by mouth Active omeprazole (PriLOSEC) 40 MG capsule Take 1 (one) capsule by mouth once daily 4 Active ondansetron (Zofran) 4 MG tablet 4 Active rimegepant (Nurtec) 75 MG tablet DISSOLVE 1 TABLET BY MOUTH EVERY OTHER DAY 3 Active rosuvastatin (Crestor) 10 MG tablet Take 1 (one) tablet by mouth once daily 3 Active traMADol (Ultram) 50 MG tablet TAKE 1 TABLET BY MOUTH 4 TIMES DAILY NEEDED FOR PAIN, TAKE WITH OTC TYLENOL 4 Active triamcinolone acetonide (Kenalog) 0.1 % cream triamcinolone acetonide 0.1 % topical cream Active metoprolol tartrate IR (Lopressor) 25 MG tablet Take 1 (one) tablet by mouth 2 times daily 3 Active Zepbound 5 MG/0.5ML injectionIndic ations:Obesity INJECT 1 SYRINGE SUBCUTANEOUSLY ONCE A WEEK Reasons: OBESITY 2 mL 3 4 Active Active Problems Patient Care Coordination No te Formatting of this note migh t be different from the original. 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 10/05/2023 Hyperlipidemia 08/21/2021 10/05/2023 Insomnia 05/27/2021 10/05/2023 Posttraumatic stress disorder 07/02/2019 Mixed anxiety and depressive disorder 11/08/2018 10/05/2023 Vitamin D deficiency 09/26/2018 10/05/2023 Gluten intolerance 02/15/2018 10/05/2023 Irritable bowel syndrome with diarrhea 8 10/05/2023 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 (F LUZONE; FLULAVAL; FLUARIX; AFLURIA QUADRIVALENT; 6MO+), 0.5 ML (IIV4) 04/24/2018,05/25/2016 Family History Medical History Relation Name Comments Obesity Father Sudd. <30 Maternal Uncle sharno recinosac t age, may be less than 30 Cancer - Breast Mother Diabetes - Type 2 Mother Hypertension Mother Obesity Mother Aneurysm, Brain Paternal Grandmother Diabetes - Type 1 Sister Relation Name Status Comments Father Alive Maternal Uncle Mother Alive Paternal Grandmother Sister Alive Social History Tobacco Use Types Packs/Day Years Used Date Smoking Tobacco: Never Smokeless Tobacco: Never Tobacco Cessation:Counseling Given: Not Answered Comments:Non smoking household Alcohol Use Standard Drinks/Week Comments No 0 (1 standard drink = 0.6 oz pur e alcohol) Comments No Sex and Gender Information Value Date Recorded Sex Assigned at Not on file Legal Sex Female 1:59 PM BACK CLOSER Gender Identity Not on file Sexual Orientation Not on file Last Filed Vital Signs Vital Sign Reading Time Taken Comments Blood Pressure 123/90 02/17/2024 11:09 AM CDT Pulse 85 02/17/2024 11:09 AM CDT Temperature 36.2 C (97.1 F) 02/17/2024 11:09 AM CDT Respiratory Rate 17 02/24/2021 5:42 PM CDT Oxygen Saturation 99% 02/17/2024 11: 09 AM CDT Inhaled Oxygen Concentration - - Weight 74.3 kg (163 lb 12.8 oz) 024 11:20 AM CDT Height 176 cm (5' 9.29) 05/05/2024 11: 20 AM CDT Body Mass Index 23.99 05/05/2024 11:20 AM CDT Plan of Treatment Health Maintenance Due Date Last Done Comments HIV SCREENING 2013 HPV VACCINE (1 - 3-dose series) 2013 HEPATITIS C SCREENING 05/03/2016 DTAP/TDAP/TD VACCINES (1 - Tdap) 2017 HEPATITIS B VACCINE (1 of 3 - 19+ 3-dose series) 2017 COVID-19 VACCINE (3 - 2023- season) 2024 10/13/2020, 09/21/2020 DEPRESSION SCREENING 07/26/2024 INFLUENZA VACCINE (Season Ended) 2025 06/09/2022, 05/07/2021, 06/17/2020, Additional history exists PAP SMEAR 01/05/2026 01/05/2023 ZOSTER VACCINE (1 of 2) 2048 HIB VACCINE Aged Out No longer eligi ble based on patient's age to complete this topic MENINGOCOCCAL (Group B) VACCINE SHARED DECISION-MAKING Aged Out No longer eligible based on patient's age to complete this topic MENINGOCOCCAL GROUPS A/C/Y/W VACCINE Aged Out No longer eligible based on patient's age to complete this topic PNEUMOCOCCAL VACCINE Aged Out No long er eligible based on patient's age to complete this topic Insurance [employer] Care Teams Large Animal Veterinarian Relationship Specialty Start Date End Date Chasidy Warren APRN-ROJELIO [address] [address] PCP - General Nurse Practitioner 03/26/21
--- OUTSIDE RECORDS SUMMARY | 2025-01-10 15:38 | XMS_ITS | Encounter Summary ---
Author Organization [facility] Address [address] [address] Care Team Providers Care Lab Engineer Name Role Phone Chasidy Warren QUALITY CONTROL TECHNICIAN-FLEXOGRAPHIC PRESS PLATE SETTER Primary Care Provider + Encounter Details Date Type Department Care Team (Late st Contact Info) Description 03/04/2022 Lab Requisition [facility] [address] [place] [address] Social History Tobacco Use Types Packs/Day Years Used Date Smoking Tobacco: Never Smokeless Tobacco: Never Comments:Non smoking househo ld Alcohol Use Standard Drinks/Week Comments No 0 (1 standard drink = 0.6 oz pur e alcohol) Comments No Sex and Gender Information Value Date Recorded Sex Assigned at Not on file Legal Sex Female 1:59 PM CHANNEL WORKER Gender Identity Not on file Sexual Orientation Not on file documented as of this encounter Functional Status * Is person deaf or have serious hearing difficulty? Answer Date of Assessment Author No 05/25/2016 11:08 AM Jermaine Porter RN * Is person blind or have serious difficulty seeing? Answer Date of Assessment Author No 05/25/2016 11:08 AM Jermaine Porter RN * Does person have serious difficulty walking/climbing stairs? Answer Date of Assessment Author No 05/25/2016 11:08 AM Jermaine Porter RN * Does person have difficulty dressing/bathing? Answer Date of Assessment Author No 05/25/2016 11:08 AM CDT Gallardo, Ma tt A, RN * Does person have difficulty doing errands alone? Answer Date of Assessment Author No 05/25/2016 11:08 AM Jermaine Porter RN documented as of this encounter Mental Status * Does person have difficulty concentrating/remembering/making decisions? Answer Entry Date Author No 05/25/2016 11:08 AM Jermaine Porter RN documented in this encounter Plan of Treatment Not on file documented as of this encounter Visit Diagnoses Not on filedocumented in this encounter Care Teams Lab Engineer Relationship Specialty Start Date End Date Chasidy Warren APRN-ROJELIO [address] [phone] PCP - General Nurse Practitioner 03/26/21 documented as of this encounter
--- OUTSIDE RECORDS SUMMARY | 2025-01-10 15:38 | XMS_ITS | CONTINUITY OF CARE DOCUMENT ---
Author Name willian dorsey Address Unknown Organization [facility] Address [address] [facility] [address] [place] [address] Phone [phone] Care Team Providers Care Home Day Care Provider Name Role Phone Sourav HA, Mauri Unavailable [phone] Dilia EASTONP-BCJackelyn Unavailable PROBLEMS Condition Status Date Provider Notes Cardiology examination completed 2 - Mauri Benjamin MD Hyperlipidemia active Francisca Piña MD Hypertension active Francisca Piña MD Chest pain-Nl stress nuclear 03/17 active Mauri Benjamin MD Cardiac murmur completed - Mauri Benjamin MD Migraines active Mauri Benjamin MD Ankylosing spondylitis active Mauri Benjamin MD Sleep disorder active Ryland Ray ENCOUNTERS Date Type Provider Location Encounter Diag nosis 6 - 6 In-person encounter Office Visit Mauri Benjamin MD [facility] Cardiology examinationChest pain-Nl stress nuclear 03/17Cardiac murmurMigrainesAnkylosing spondylitisSleep disorder 2 - 3 In-person encounter Office Visit Francisca Piña MD [facility] HyperlipidemiaHypertensionChest pain-Nl stress nuclear 03/17 VITAL SIGNS Date Observation Value Provider Body Mass Index (Ratio) 30.27 kg/m2 Kavon Benjamin MD pulse rate 71 /min Apoorva Larry blood pressure, diastolic 92 mm[Hg] An terry Larry blood pressure, systolic 125 mm[Hg] Iram chang Larry oxygen saturation, oximetry 98 % Apoorva Larry weight E&M 211 [lb_av] Apoorva Larry blood pressure, cuff size large An terry Larry height E&M 70 [in_i] Apoorva Larry Body Mass Index (Ratio) 29.99 kg/m2 Salo Piña MD blood pressure, diastolic 88 mm[Hg] Christa nkLogjemma blood pressure, systolic 128 mm[Hg] Laura kLog pulse rate 81 /min Akbar da y blood pressure, cuff size regular Ja rret blood pressure, diastolic 88 mm[Hg] Ja rret blood pressure, systolic 128 mm[Hg] Jar ret respiratory rate E&M 12 /min Akbar oxygen saturation, oximetry 99 % Akbar height E&M 70 [in_i] Akbar erda y weight E&M 209 [lb_av] Akbar y ALLERGIES No Known Drug Allergies HISTORY OF MEDICATION USE Medication Status Instructions Dates Provider Indications Com ments metoprolol tartrate 25 mg tablet active Take 1 tablet by mouth twice daily 2 Ricarda Rushing lisinopril 10 mg tablet completed - 2 Francisca Piña MD gabapentin 600 mg tablet active meloxicam unspecified unspecified active Simponi ARIA unspecified unspecified active Akbar Tylenol 325 mg tablet active Akbar NuvaRing unspecified unspecified active Akbar SOCIAL HISTORY Date Observation Value Provider social history E&M S moking History: Bunny verdin has never smoked. Ryland Tejeda smoking status Never smoker Apoorva Juarez social history reviewed E&M revi ewed - no changes required Mauri Benjamin MD number of grandchildren Francisca Piña MD social history E&M S moking History: Bunny verdin has never smoked. Francisca Piña MD social history reviewed E&M revi ewed - no changes required Francisca Piña MD smoking status Never smoker Akbar [facility] INSURANCE PROVIDERS Payer name Policy type / Coverage type [employer] libertarian ID [id number] ADVANCE DIRECTIVES Name Date DISCUSSED - NO DECISION MADE TREATMENT PLAN Date Name Performer [id number],S, Ryland Ahmedza i [id number],S, Ryland Ahmedza i [id number],S, Ryland Ahmedza i [id number],S, Ryland Ahmedza i [id number],S, Ryland Ahmedza i [id number],S, Ryland Ahmedza i [id number],S, Ryland Ahmedza i [id number],S, Ryland Ahmedza i [id number],S, Ryland Ahmedza i [id number],S, Ryland Ahmedza i [id number],C,T readmill stress test avoid radiation ECHO has been done results unavailable Francisca Piña MD [id number],C,S oft systolic murmur suspect tricuspid valve regurgitation Francisca Piña MD [id number],C,O n fish oil triglycerides down from 600 to 200. Francisca Piña MD [id number],S,N OT IN FAVOR OF PUTTING HER ON LISINOPRIL DURING TIMEFRAME REGARDLESS OF STATUS OF CONTROL OR NOT. I WILL DISCONTINUE LISINOPRIL START METOPROLOL 25 MG BID. HAVE HER CHECK BP AT HOME AND IF NEEDED INITIATE NORVASC 5 MG IF SBP IS GREATER THAN 130. H er updated medication list for this problem includes: Lisinopril 10 Mg Tablet (Lisinopril) BP today: 128/88 Francisca Piña MD Telehealth Ryland Ahmedzai Telehealth Ryland Ahmedzai Telehealth Ryland Ahmedzai Telehealth Ryland Ahmedzai Cardiology Ryland Ahmedzai Cardiology Ryland Ahmedzai Cardiology Ryland Ahmedzai Cardiology Ryland Ahmedzai Cardiology Ryland Ahmedzai Cardiology Ryland Ahmedzai Cardiology:Treadmill stress test avoid radiation ECHO has been done results unavailable Francisca Piña MD Cardiology:Soft syst olic murmur suspect tricuspid valve regurgitation Francisca Piña MD Cardiology:On fish o il triglycerides down from 600 to 200. Francisca Piña MD Cardiology:NOT IN FA VOR OF PUTTING HER ON LISINOPRIL DURING TIMEFRAME REGARDLESS OF STATUS OF CONTROL OR NOT. I WILL DISCONTINUE LISINOPRIL START METOPROLOL 25 MG BID. HAVE HER CHECK BP AT HOME AND IF NEEDED INITIATE NORVASC 5 MG IF SBP IS GREATER THAN 130. H er updated medication list for this problem includes: Lisinopril 10 Mg Tablet (Lisinopril) BP today: 128/88 Francisca Piña MD Date Name Sleep Study Home Renal Artery Duplex Stress Exercise Card iolite HISTORY OF PROCEDURES Procedure Date Procedure Name Provider Procedure Notes S tatus EKG Francisca Piña MD compl eted
== END 2025-01-10 13:52 | disposition home or self-care (01) ==
LOC: ANHIMG 13:54
PROVIDERS: PCP Nurse Practitioner Adult Health; Visit Provider Student in an Organized Health Care Education/Training Program
DX: N64.52 Nipple discharge (principal)
CPT/HCPCS: 76641